=== PATIENT | male | born 1965 | race Caucasian/White ===

== ENCOUNTER 2019-10-15 09:52 | Inpatient (IN) | payer BC ==
[2019-10-15] MEDS ORDERED: Adenosine 6 MG/2 ML VIAL ONE (09:56)
[2019-10-15] MEDS ORDERED: Aspirin 325 MG TAB ONE (09:58)
[2019-10-15] MEDS ORDERED: Enoxaparin Sodium 30 MG/0.3 ML SYRINGE ONE (10:03)
[2019-10-15] MEDS ORDERED: Enoxaparin Sodium 100 MG/ML SYRINGE ONE (10:03)
[2019-10-15 10:12] LABS: Hemoglobin 15.9 g/dL (14.0-18.0); Mean Corpuscular HGB CONC 34.9 g/dL (32.0-36.0); Mean Corpuscular Hemoglobin 32.8 pg (27.0-31.0); Mean Corpuscular Volume 93.9 fL (78.0-98.0); Mean Platelet Volume 7.9 fL (7.4-10.4); Platelet Count 343 thou/uL (130-400); RBC Distribution Width 11.5 % (11.5-14.5); Red Blood Cell (RBC) Count 4.85 mill/uL (4.70-6.10); White Blood Cell (WBC) Count 15.1 thou/uL (4.8-10.8)
[2019-10-15] MEDS ORDERED: Diltiazem 125 MG/25 ML ONE (10:12)
[2019-10-15 10:17] LABS: INR-International Normal Ratio 0.9; PTT 25.4 SEC (22.9-36.1); Prothrombin Time 12.2 SEC (12.0-14.7)
[2019-10-15 10:30] LABS: ALT (SGPT) 19 U/L (8-55); AST (SGOT) 24 U/L (5-34); Albumin 4.5 g/dL (3.5-5.0); Alkaline Phosphatase 64 U/L (40-110); Anion Gap 17 mmol/L (10-20); BUN (Urea Nitrogen) 12 mg/dL (8.4-25.7); Bilirubin, Total 0.4 mg/dL (0.2-1.2); CK (CPK) 410 U/L (30-200); Calc. Creatinine Clearance 0 mL/min (70-130); Calcium 9.7 mg/dL (7.8-10.44); Carbon Dioxide 21 mmol/L (22-29); Chloride 106 mmol/L (98-107); Estimated GFR-MDRD 88; Globulin 3.2 g/dL (2.4-3.5); Protein, Total 7.7 g/dL (6.0-8.3); Sodium 141 mmol/L (136-145)
[2019-10-15] MEDS ORDERED: Diltiazem HCl 125 MG, Admixture Fee 1 EACH in Sodium Chloride 0.9% 100 ML IVPB SCH (10:30)
[2019-10-15 10:33] LABS: Glucose 58 mg/dL (70-105); Potassium 2.8 mmol/L (3.5-5.1)
--- NOTE | 2019-10-15 10:33 | RAD ---
EXAM: Single view of the chest HISTORY: Tachycardia COMPARISON: None FINDINGS: Single view of the chest shows a normal sized cardiomediastinal silhouette. There is no jose dence of consolidation, mass, or pleural effusion. The bones are unremarkable. IMPRESSION: No evidence of acute cardiopulmonary disease
[2019-10-15] MEDS ORDERED: Potassium Chloride 20 MEQ TAB ONE ×2 (10:34→14:50)
[2019-10-15] MEDS ORDERED: Dextrose 50% Abboject 50 ML SYRINGE ONE (10:34)
[2019-10-15 10:37] LABS: Eosinophils 2 % (0-10); Large Platelets SLIGHT; Lymphocytes 35 % (21-51); MDiff Complete? YES; Monocytes 12 % (0-10); Neutrophil 44 % (42-75); Ovalocytes SLIGHT = 2-5 cells (100X) (0-1/hpf); Platelet Morphology Comment Appears Decreased; Reactive Lymphocytes 6 % (0-10)
[2019-10-15] MEDS ORDERED: Dextrose 10% in Water 250 ML IVPB SCH (10:45)
[2019-10-15 13:25] LABS: Troponin I 0.052 ng/mL (< 0.028)
[2019-10-15] MEDS ORDERED: Ondansetron ODT 4 MG TAB PO PRN (13:25)
[2019-10-15] MEDS ORDERED: Ondansetron PF 4 MG/2 ML Vial IVP PRN (13:25)
[2019-10-15] MEDS ORDERED: Dextrose 5% in Water 1,000 ML IV PRN (13:25)
[2019-10-15] MEDS ORDERED: HYDROcodone/Acetaminophen 5/325 mg Tablet PO PRN (13:25)
[2019-10-15] MEDS ORDERED: Dextrose 50% Abboject 50 ML SYRINGE SLOW IVP PRN (13:25)
[2019-10-15] MEDS ORDERED: Enoxaparin Sodium 40 MG/0.4 ML SYRINGE SC SCH (13:30)
[2019-10-15] MEDS ORDERED: Magnesium Sulfate 4 GM in Sodium Chloride 0.9% 250 ML 250 ML IVPB SCH (14:00)
--- NOTE | 2019-10-15 14:51 | HP ---
PRIMARY CARE PROVIDER: Out of town physician. CHIEF COMPLAINT: Acute onset of malaise and palpitations. HISTORY OF PRESENT ILLNESS: A 54-year-old male with past medical history significant for obesity, diabetes mellitus on insulin, who presents with sudden onset of ill feeling malaise associated with diaphoresis and palpitation. The patient reportedly woke up well and was getting ready for discharge, but suddenly developed sudden onset of ill feeling associated with diaphoresis and some orthostatic dizziness. He also felt some palpitations, but did not fall. Maybe he was having hypoglycemia for he took his usual Lantus dose about an hour earlier on. He took a bite of some food and decided to lay down. However, due to some chest discomfort and some palpitation as well as diaphoresis, dry mouth, and ill feeling, the checked his blood pressure and it was noted to be above 200, hence they decided to come to the hospital. On arrival to the ER, initial vitals showed blood pressure of 221/94, pulse of 120, respiratory rate of 16, temperature of 98.4 as well as SpO2 of 98 on room air. Initial EKG showed sinus tachycardia with no obvious discernible P wave concerning for possible atrial fibrillation. ED doctor then decided to slow down the heart to see if we could descend the reading better, so he gave adenosine, but there was no significant change in rate or rhythm. He subsequently started the patient on Cardizem infusion with decrease in heart rate at which point he was able to discern some P waves consistent with sinus tachycardia. Cardizem improved the heart rate as well as blood pressure, but subsequently the heart rate dropped to about 90s and blood pressure down to 150s, hence they discontinued the Cardizem infusion. Further evaluation with CMP showed serum potassium of 2.8 and glucose of 58. At this point, hypoglycemia was considered. Of note, the patient took some bites of some food at home prior to leaving home and also drank some Mountain Dew diet en route to the hospital. He was treated subsequently for hypoglycemia with dextrose containing infusion as well as 40 mEq of potassium chloride for hypokalemia. Soon, diaphoresis, palpitation, and restlessness subsided and the patient is calm. Since discontinuation of Cardizem infusion, heart rate has remained below 100 and the patient is comfortable. Note that there was no history of chest pain or radiation. The patient admitted to feeling of unwell in his chest. Of note, the patient took 80 units of Lantus about an hour before onset of symptoms. By the time he took the Lantus, he has not had anything to eat as well. PAST MEDICAL HISTORY: 1. Diabetes mellitus, on insulin. 2. Hypertension. 3. Hypothyroidism. 4. Morbid obesity. 5. Dyslipidemia. PAST SURGICAL HISTORY: 1. Hernia repair. 2. Bilateral knee surgery. FAMILY HISTORY: Significant for coronary artery disease, diabetes, hypertension, as well as CVA in both parents. A brother from metastatic melanoma. SOCIAL HISTORY: The patient lives with family here in town, but walks in [place]. He denied alcohol, drug use, or smoking. He wants to be full code and spouse is the surrogate decision maker. ALLERGIES: ERYTHROMYCIN. CURRENT HOME MEDICATIONS: 1. Lantus 80 units morning and night. 2. Metformin 1000 mg b.i.d. 3. Levothyroxine 150 mcg p.o. daily. 4. Lisinopril 5 mg p.o. daily. 5. Aspirin 81 mg p.o. daily. REVIEW OF SYSTEMS: Twelve-point review of system performed was negative other than pertinent positives and negatives included in the history of present illness. PHYSICAL EXAMINATION: VITAL SIGNS: Most recent vitals showed BP of 168/61, pulse of 99, respiratory rate of 15, and SpO2 of 94% on room air. GENERAL: Morbidly obese male, in no obvious distress. Afebrile. Anicteric. Acyanotic. HEENT: Normocephalic, atraumatic. Oral mucosa is moist. NECK: Supple with no JVD. No masses or lymphadenopathy appreciated. CARDIOVASCULAR: Regular rhythm and rate with normal heart sounds one and two. RESPIRATORY: Fair air entry bilaterally with no obvious crackle or rhonchi or use of accessory muscles. GI: Obese, soft, nontender, nondistended with normal bowel sounds. EXTREMITIES: Grossly normal looking atraumatic with no edema or erythema. Distal pulses are palpable. BRONZE CHASER: Conscious, alert, oriented x3 with appropriate mental status. Cranial nerves 2 through 12 are grossly intact. DIAGNOSTIC DATA: CBC showed WBC count of 15, hemoglobin of 15.9, MCV of 93.9, platelet of 343. Coagulation panel showed PT 12.2, INR 0.9, PTT 25.4. CMP showed sodium 141, potassium 2.8, chloride 106, CO2 of 21, BUN 12, creatinine 0.90, anion gap 17, glucose 58, calcium 9.7, total bilirubin 0.4, AST 24, ALT 19, alkaline phosphatase 64, total protein 7.7, albumin 4.5, globulin 3.2. Initial cardiac markers showed CK 410, troponin less than 0.010 and BNP 14.3. EKG: Initial EKG showed sinus tachycardia with most likely sinus rhythm. Rate was 120. Subsequent EKG obtained after commencement of Cardizem infusion showed sinus tachycardia. No obvious ST elevation was discernible. Chest x-ray showed no evidence of acute cardiopulmonary disease. ASSESSMENT: 1. Acute cardiopulmonary distress: Etiology is unclear. Differentials include hypoglycemic and/or symptomatic tachyarrhythmia and/or acute coronary syndrome. 2. Presumed hypoglycemic episode. The patient admitted to malaise and diaphoresis and blood sugar was 58 on presentation despite eating something at home and the patient took long-acting insulin prior. 3. Tachyarrhythmia: Etiology is unclear. 4. Possible acute coronary syndrome. 5. Morbid obesity. 6. Type 2 diabetes mellitus, on insulin. 7. Significant history for coronary artery disease in both parents. PLAN: 1. Hypokalemia: Hypomagnesemia. 2. History of generalized cramps. 3. We will get serial troponin to rule out acute myocardial infarction. 4. We will also get Cardiology consult. 5. We will replete serum potassium and magnesium with potassium chloride and magnesium sulfate respectively. 6. We will also start the patient on dextrose containing infusion given hypoglycemia which is felt to be due to long-acting insulin. Diabetic diet will be commenced and we will monitor blood sugar regularly and treat hypoglycemia should it occur. We will hold any further insulin therapy at this time. 7. We will admit the patient to telemetry for close monitoring. 8. Code status full code. Spouse is the surrogate decision maker. Further treatment to follow depending on hospital course. Job ID: [id number]
[2019-10-15] MEDS: Dextrose 5%-Lactated Ringers 1,000 ML IV SCH ×2 (16:02→18:57)
[2019-10-15 16:42] LABS: Bacteria/HPF None Seen HPF (None Seen); Bilirubin Negative (Negative); Blood, Urine Negative (Negative); Clarity Clear (Clear); Glucose, Urine (Dipstick) Normal (Negative); Leukocyte Negative Leu/uL (Negative); Nitrite Negative (Negative); Protein, Urine (Dipstick) Negative (Neg-Trace); RBC/HPF 0-3 HPF (0-3); Squamous Epithelial 0-3 HPF (0-3); Urobilinogen Normal mg/dL (Less than 2); WBC/HPF 0-3 HPF (0-3)
[2019-10-15 16:44] LABS: Urine Culture Reflex No No
[2019-10-15 16:52] LABS: Amphetamine Not Detected (NotDetected); Barbiturates Screen Not Detected (NotDetected); Benzodiazepine Screen Not Detected (NotDetected); Cocaine Metabolite Screen Not Detected (NotDetected); Medtox Control Line Valid? VALID (VALID); Medtox Reader # READER 4; Methadone Not Detected (NotDetected); Methamphetamine Not Detected (NotDetected); Opiate Screen Not Detected (NotDetected); Oxycodone Screen Not Detected (NotDetected); Phencyclidine (PCP) Not Detected (NotDetected); THC/Cannabinoid Screen Not Detected (NotDetected); Tricyclic Screen Not Detected (NotDetected)
[2019-10-15 17:21] LABS: Troponin I 0.237 ng/mL (< 0.028)
[2019-10-15] MEDS: Famotidine 20 MG TAB PO SCH (19:58)
[2019-10-15] MEDS ORDERED: Enoxaparin Sodium 80 MG/0.8 ML SYRINGE SC SCH (20:01)
[2019-10-15 20:22] LABS: Anion Gap 17 mmol/L (10-20); BUN (Urea Nitrogen) 9 mg/dL (8.4-25.7); Calc. Creatinine Clearance 191 mL/min (70-130); Calcium 9.1 mg/dL (7.8-10.44); Carbon Dioxide 19 mmol/L (22-29); Chloride 107 mmol/L (98-107); Estimated GFR-MDRD Greater than 90; Glucose 144 mg/dL (70-105); Potassium 4.2 mmol/L (3.5-5.1); Sodium 139 mmol/L (136-145)
[2019-10-16 05:06] LABS: Anion Gap 12 mmol/L (10-20); BUN (Urea Nitrogen) 8 mg/dL (8.4-25.7); Calc. Creatinine Clearance 159 mL/min (70-130); Calcium 8.7 mg/dL (7.8-10.44); Carbon Dioxide 24 mmol/L (22-29); Chloride 105 mmol/L (98-107); Estimated GFR-MDRD 78; Glucose 215 mg/dL (70-105); Potassium 3.9 mmol/L (3.5-5.1); Sodium 137 mmol/L (136-145)
[2019-10-16 05:21] LABS: Eosinophils 2 % (0-10); Hemoglobin 13.9 g/dL (14.0-18.0); Lymphocytes 49 % (21-51); MDiff Complete? YES; Mean Corpuscular HGB CONC 34.9 g/dL (32.0-36.0); Mean Corpuscular Hemoglobin 33.2 pg (27.0-31.0); Mean Corpuscular Volume 95.2 fL (78.0-98.0); Mean Platelet Volume 7.7 fL (7.4-10.4); Monocytes 7 % (0-10); Neutrophil 42 % (42-75); Platelet Count 279 thou/uL (130-400); Platelet Morphology Comment Appears Adequate; RBC Distribution Width 11.6 % (11.5-14.5); Red Blood Cell (RBC) Count 4.17 mill/uL (4.70-6.10); White Blood Cell (WBC) Count 10.9 thou/uL (4.8-10.8)
[2019-10-16] MEDS ORDERED: Enoxaparin Sodium 40 MG/0.4 ML SYRINGE SC SCH (09:00)
[2019-10-16] MEDS: Famotidine 20 MG TAB PO SCH ×2 (09:49→22:10)
[2019-10-16] MEDS: Aspirin 325 mg Enteric Coated Tablet PO SCH (09:49)
[2019-10-16] MEDS: Acetaminophen 325 MG TAB PO PRN (09:52)
[2019-10-16] MEDS: Enoxaparin Sodium 120 MG/0.8 ML SYRINGE SC SCH ×2 (10:52→22:09)
[2019-10-16] MEDS ORDERED: Metoprolol Tartrate 25 MG TAB PO SCH (15:45)
--- NOTE | 2019-10-16 16:43 | PDOC.HOSPP ---
- Subjective Encounter Date: 10/16/19 Encounter Time: 09:37 Subjective: 54 y/o male with obesity, DM, HTN and others admitted with acute onset of ill feeling/malaise associated with diaphoresis and palpitation. Found to have hypoglycemia, tachycardia, as well as severe hypokalemia, hypomagnesemia and elevated troponin hence started on antithrombotic therapy after correction of hypoglycemia and electrolyte derangements. Feeling Better. remained afebrile. No chest pain. - Objective Vital Signs & Weight: Vital Signs (12 hours) Temp Pulse Resp BP Pulse Ox 10/16/19 15:48 97.7 F 75 22 H 193/89 H 96 10/16/19 10:50 98.4 F 75 18 142/89 H 96 10/16/19 08:10 97.8 F 73 18 136/65 96 Weight Weight 293 lb Result Diagrams: 10/16/19 04:27 10/16/19 04:27 Additional Labs: Accuchecks 10/16/19 10/16/19 10/16/19 13:47 08:40 05:58 POC Glucose 256 H 179 H 186 H 10/16/19 10/15/19 00:09 20:38 POC Glucose 189 H 208 H Hospitalist ROS - Medication Medications: Active Medications Generic Name Dose Route Start Last Admin Trade Name Freq PRN Reason Stop Dose Admin Acetaminophen 650 mg 10/15/19 13:25 10/16/19 09:52 Tylenol PO 650 mg Q4H PRN Administration Headache/Fever/Mild Pain (1-3) Aspirin 325 mg 10/16/19 09:00 10/16/19 09:49 Ecotrin PO 325 mg DAILY ABDOULAYE Administration Enoxaparin Sodium 120 mg 10/16/19 09:00 10/16/19 10:52 Lovenox SC 120 mg 0900,2100 ABDOULAYE Administration Famotidine 20 mg 10/15/19 21:00 10/16/19 09:49 Pepcid PO 20 mg BID ABDOULAYE Administration Metoprolol Tartrate 25 mg 10/16/19 15:45 10/16/19 16:14 Lopressor PO 10/16/19 17:45 25 mg NOW ABDOULAYE Administration - Exam General Appearance: awake alert General - other findings: obese Eye: anicteric sclera ENT: normocephalic atraumatic, moist mucosa Neck: supple, symmetric, no JVD Heart: RRR Respiratory: no wheezes, no rales, no ronchi, normal chest expansion, no tachypnea Gastrointestinal: soft, non-tender, non-distended, normal bowel sounds Extremities: no cyanosis, no edema Neurological: cranial nerve grossly intact, no focal deficits Psychiatric: normal affect, A&O x 3 Hosp A/P (1) ACS (acute coronary syndrome) Code(s): I24.9 - ACUTE ISCHEMIC HEART DISEASE, UNSPECIFIED Status: Acute (2) Paroxysmal tachycardia Code(s): I47.9 - PAROXYSMAL TACHYCARDIA, UNSPECIFIED Status: Acute (3) Hypoglycemia due to insulin Code(s): E16.0 - DRUG-INDUCED HYPOGLYCEMIA WITHOUT COMA; T38.3X5A - ADVERSE EFFECT OF INSULIN AND ORAL HYPOGLYCEMIC DRUGS, INIT Status: Acute (4) Obesity (BMI 35.0-39.9 without comorbidity) Code(s): E66.9 - OBESITY, UNSPECIFIED Status: Acute (5) Diabetes mellitus Code(s): E11.9 - TYPE 2 DIABETES MELLITUS WITHOUT COMPLICATIONS Status: Acute (6) Dyslipidemia Code(s): E78.5 - HYPERLIPIDEMIA, UNSPECIFIED Status: Acute (7) Hypomagnesemia Code(s): E83.42 - HYPOMAGNESEMIA Status: Acute (8) Hypokalemia Code(s): E87.6 - HYPOKALEMIA Status: Acute - Plan DC dextrose containg infusion Monitor blood glucose Continue antithrombotic therapy Continue to hold insulin Monitor electrolytes and replete as needed Awaiting cardiology input
--- NOTE | 2019-10-16 16:57 | CON ---
DATE OF CONSULTATION: 10/16/2019 REASON FOR CONSULTATION: Acute coronary syndrome and non-ST elevation myocardial infarction. HISTORY OF PRESENT ILLNESS: Mr. James Pena is a very pleasant 54-year-old gentleman. He said he has had diabetes for "about 20 years." Yesterday the onset of just not feeling right, some palpitations, diaphoresis, and a vague discomfort in his chest, but mostly he does felt like something did not feel right to him. He had a really very little way in a chest discomfort, more of a sensation of palpitations. The patient became diaphoretic. He also felt extremely lightheaded like he might faint. His is a nurse and she encouraged him to go to the emergency room, which he eventually did. He was extremely hypertensive, blood pressure 220/94 and pulse 120. The patient was given diltiazem. Also found to be very low on potassium and magnesium, those were both repleted. The patient felt better after got these medicines. The patient is feeling fine today. The patient did have ST depression associated with this sensation that was documented in the emergency room. PAST MEDICAL HISTORY: 1. Diabetes. He says about 20 years, he is on insulin. 2. Hypertension. 3. Morbid obesity. 4. Hypothyroidism. 5. Dyslipidemia. PAST SURGICAL HISTORY: 1. Hernia repair. 2. Bilateral knee surgery. FAMILY HISTORY: Positive for coronary artery disease. SOCIAL HISTORY: Lives with his family here in town. Works in [employer]. ALLERGIES: TO ERYTHROMYCIN. MEDICATIONS: Prior to admission; 1. Lantus insulin. 2. Metformin. 3. Levothyroxine. 4. Lisinopril. 5. Aspirin. REVIEW OF SYSTEMS: CONSTITUTIONAL: No significant weight gain or loss. VISION: No changes. HEARING: No changes. PULMONARY: No cough or wheezing. GASTROINTESTINAL: No nausea, vomiting, or diarrhea. SKIN: No rashes. NEUROLOGIC: No unilateral weakness or numbness. PSYCHIATRIC: No unusual depression or anxiety. HEMATOLOGIC: No unusual bruising. GENITOURINARY: No burning with urination. PHYSICAL EXAMINATION: VITAL SIGNS: Blood pressure 142/89 and pulse 74 and regular. LUNGS: Clear. CARDIAC: Normal S1. Normal S2. ABDOMEN: Soft and nontender. EXTREMITIES: Warm and dry. No clubbing. No cyanosis or edema. Peripheral pulses are deep, but I do feel pedal pulses. PERTINENT LABORATORY DATA: The potassium was 2.8 initially. Magnesium was 1.4 initially. The pertinent laboratory, the patient did have ST depression in leads I, II, V4, V5, and V6 on the emergency room EKGs. The heart rate at that time was about 115 beats per minute. Cardiac enzymes, troponin level peak 0.237 yesterday afternoon. Echocardiogram was done showing the ejection fraction is normal 55% to 60%. For some reason, it has not been transferred into [facility], but it is in the echo system. ASSESSMENT: 1. Non-ST elevation myocardial infarction. 2. Longstanding diabetes. 3. Obesity, BMI is 39.7. 4. Hypokalemia. 5. Hypomagnesemia. 6. Unknown cholesterol status. PLAN: 1. Aspirin. 2. We will add beta blockers, especially in view of the tachycardia associated with the symptoms. 3. Check lipid profile and statins have been started. Target LDL needs to be below 70. 4. Recommend cardiac catheterization. Discussed the procedure with this gentleman. The patient initially states he was not going to stay in the hospital to get this done, but he is reconsidering that. Discussed the procedure with this gentleman. There is really no indication for stress testing as he has positive cardiac enzymes and ST depression with the symptoms, very high risk profile patient. The patient understands. We will check back with him later as he has not yet decided if he wishes to stay in the hospital to get this done. The patient states he will not stay, if he continues to have the Hep-Lock in the left antecubital fossa. I think we can take that out. I think it is more important that he stay here on the monitor. We observe him, in case he has recurrent chest pain. The patient does not want this IV left in the left antecubital fossa, wants to have it out now. We will check back the patient later back to know his decision. Job ID: [id number]
[2019-10-16] MEDS ORDERED: Potassium Chloride 20 MEQ TAB PO SCH (18:00)
[2019-10-16] MEDS: Atorvastatin Calcium 40 MG TAB PO SCH (22:09)
[2019-10-16] MEDS ORDERED: Communication Order-Pharmacy FS SCH ×2 (22:45)
[2019-10-17] MEDS: Acetaminophen 325 MG TAB PO PRN ×2 (00:17→05:49)
[2019-10-17 05:18] LABS: Anion Gap 12 mmol/L (10-20); BUN (Urea Nitrogen) 10 mg/dL (8.4-25.7); Calc. Creatinine Clearance 136 mL/min (70-130); Calcium 9.2 mg/dL (7.8-10.44); Carbon Dioxide 25 mmol/L (22-29); Cardiac Risk 8.1 (Less than 4.5); Chloride 102 mmol/L (98-107); Cholesterol 210 mg/dl (< 200 Desired); Estimated GFR-MDRD 65; Glucose 274 mg/dL (70-105); HDL Cholesterol 26 mg/dL (>60 Neg Risk); Magnesium 1.9 mg/dL (1.6-2.6); Potassium 4.1 mmol/L (3.5-5.1); Sodium 135 mmol/L (136-145); Triglycerides 527 mg/dL (Less than 150)
[2019-10-17 05:21] LABS: Troponin I 0.095 ng/mL (< 0.028)
[2019-10-17] MEDS: Levothyroxine 150 MCG TAB PO SCH (05:47)
[2019-10-17] MEDS: Famotidine 20 MG TAB PO SCH ×2 (08:13→20:50)
[2019-10-17] MEDS: Enoxaparin Sodium 100 MG/ML SYRINGE SC SCH ×2 (08:14→20:49)
[2019-10-17] MEDS: Aspirin 325 mg Enteric Coated Tablet PO SCH (08:14)
[2019-10-17] MEDS: Magnesium Oxide 400 MG TAB PO SCH (08:14)
[2019-10-17] MEDS: Potassium Chloride 20 MEQ TAB PO SCH (08:14)
[2019-10-17] MEDS: Insulin Glargine 24 UNITS in Pre-Filled Syringe 1 EACH SC SCH (08:15)
[2019-10-17] MEDS: HumaLOG 300 UNITS/3 ML VIAL SC PRN ×2 (08:19→18:23)
--- NOTE | 2019-10-17 13:16 | PDOC.HOSPP ---
- Subjective Encounter Date: 10/17/19 Encounter Time: 09:14 Subjective: 54 y/o male with obesity, DM, HTN and others admitted with acute onset of ill feeling/malaise associated with diaphoresis and palpitation. Found to have hypoglycemia, tachycardia, as well as severe hypokalemia, hypomagnesemia and elevated troponin hence started on antithrombotic therapy after correction of hypoglycemia and electrolyte derangements. Feeling Better. No chest pain. - Objective Vital Signs & Weight: Vital Signs (12 hours) Temp Pulse Resp BP BP Pulse Ox 10/17/19 10:55 98.0 F 75 15 153/72 H 97 10/17/19 07:12 98.3 F 73 21 H 160/79 H 96 10/17/19 04:00 98.3 F 66 23 H 147/72 H 96 Weight Weight 293 lb Result Diagrams: 10/16/19 04:27 10/17/19 04:44 Additional Labs: Accuchecks 10/17/19 10/16/19 10/16/19 06:03 21:08 16:52 POC Glucose 257 H 255 H 234 H 10/16/19 13:47 POC Glucose 256 H Hospitalist ROS - Medication Medications: Active Medications Generic Name Dose Route Start Last Admin Trade Name Freq PRN Reason Stop Dose Admin Acetaminophen 650 mg 10/15/19 13:25 10/17/19 05:49 Tylenol PO 650 mg Q4H PRN Administration Headache/Fever/Mild Pain (1-3) Aspirin 325 mg 10/16/19 09:00 10/17/19 08:14 Ecotrin PO 325 mg DAILY ABDOULAYE Administration Atorvastatin Calcium 40 mg 10/16/19 21:00 10/16/19 22:09 Lipitor PO Not Given HS [facility] Enoxaparin Sodium 100 mg 10/17/19 09:00 10/17/19 08:14 Lovenox SC 10/18/19 21:01 100 mg 0900,2100 ABDOULAYE Administration Famotidine 20 mg 10/15/19 21:00 10/17/19 08:13 Pepcid PO 20 mg BID ABDOULAYE Administration Insulin Glargine 24 units/ 0.24 mls @ 0 mls/hr 10/17/19 09:00 10/17/19 08:15 Miscellaneous Medication SC 0.24 mls QAM ABDOULAYE Administration Insulin Human Lispro 0 units 10/17/19 05:39 10/17/19 08:19 Humalog SC 6 units .MODERATE SLIDING SC PRN Administration Moderate Correctional Scale Levothyroxine Sodium 150 mcg 10/17/19 06:00 10/17/19 05:47 Synthroid PO 150 mcg 0600 ABDOULAYE Administration Magnesium Oxide 400 mg 10/17/19 09:00 10/17/19 08:14 Magnesium Oxide PO 400 mg DAILY ABDOULAYE Administration Metoprolol Succinate 50 mg 10/17/19 09:00 10/17/19 08:14 Toprol Xl PO 50 mg DAILY ABDOULAYE Administration Potassium Chloride 20 meq 10/17/19 08:00 10/17/19 08:14 K-Dur PO 20 meq QAM-WM ABDOULAYE Administration - Exam General Appearance: awake alert Eye: anicteric sclera ENT: normocephalic atraumatic Neck: symmetric, no JVD Heart: RRR Respiratory: no wheezes, no rales, no ronchi, normal chest expansion Gastrointestinal: soft, non-tender, non-distended, normal bowel sounds Gastrointestinal - other findings: obese Extremities: no cyanosis, no edema Neurological: cranial nerve grossly intact, no focal deficits Psychiatric: A&O x 3 Hosp A/P (1) Acute non-ST elevation myocardial infarction (NSTEMI) Code(s): I21.4 - NON-ST ELEVATION (NSTEMI) MYOCARDIAL INFARCTION Status: Acute (2) Paroxysmal tachycardia Code(s): I47.9 - PAROXYSMAL TACHYCARDIA, UNSPECIFIED Status: Acute (3) Hypoglycemia due to insulin Code(s): E16.0 - DRUG-INDUCED HYPOGLYCEMIA WITHOUT COMA; T38.3X5A - ADVERSE EFFECT OF INSULIN AND ORAL HYPOGLYCEMIC DRUGS, INIT Status: Acute (4) Obesity (BMI 35.0-39.9 without comorbidity) Code(s): E66.9 - OBESITY, UNSPECIFIED Status: Acute (5) Diabetes mellitus Code(s): E11.9 - TYPE 2 DIABETES MELLITUS WITHOUT COMPLICATIONS Status: Acute (6) Dyslipidemia Code(s): E78.5 - HYPERLIPIDEMIA, UNSPECIFIED Status: Acute (7) Hypomagnesemia Code(s): E83.42 - HYPOMAGNESEMIA Status: Acute (8) Hypokalemia Code(s): E87.6 - HYPOKALEMIA Status: Acute - Plan Continue antithrombotic therapy Cardiac catheterization scheduled in 2 days Restart lantus at a lower dose. Also start sliding scale insulin. Continue to hold metformin in view of planned cardiac catheterization Monitor electrolytes and replete as needed
--- NOTE | 2019-10-17 16:44 | PDOC.CPN ---
- Subjective Date: 10/17/19 Time: 16:48 Interval history: The pt seen and examined. No overnight events. No cardiac complaints. - Objective Allergies/Adverse Reactions: Allergies Allergy/AdvReac Type Severity Reaction Status Date / Time azithromycin Allergy Verified 10/15/19 17:41 Visit Medications: Current Medications Acetaminophen (Tylenol) 650 mg PO Q4H PRN PRN Reason: Headache/Fever/Mild Pain (1-3) Last Admin: 10/17/19 05:49 Dose: 650 mg Hydrocodone Bitart/Acetaminophen ([place] 5/325) 1 tab PO Q4H PRN PRN Reason: Moderate Pain (4-6) Aspirin (Ecotrin) 325 mg PO DAILY [facility] Last Admin: 10/17/19 08:14 Dose: 325 mg Atorvastatin Calcium (Lipitor) 40 mg PO HS [facility] Last Admin: 10/16/19 22:09 Dose: Not Given Dextrose/Water (Dextrose 50%) 25 gm SLOW IVP PRN PRN PRN Reason: Hypoglycemia Diazepam (Valium) 5 mg PO WILLCALL [facility] Stop: 10/19/19 06:01 Enoxaparin Sodium (Lovenox) 100 mg SC 0900,2100 [facility] Stop: 10/18/19 21:01 Last Admin: 10/17/19 08:14 Dose: 100 mg Famotidine (Pepcid) 20 mg PO BID [facility] Last Admin: 10/17/19 08:13 Dose: 20 mg Glucagon (Glucagon) 1 mg IM PRN PRN PRN Reason: Hypoglycemia Dextrose/Water (D5w) 1,000 mls @ 0 mls/hr IV .Q0M PRN PRN Reason: Hypoglycemia Sodium Chloride (Normal Saline 0.9%) 1,000 mls @ 100 mls/hr IV .Q10H [facility] Insulin Glargine 24 units/ (Miscellaneous Medication) 0.24 mls @ 0 mls/hr SC QAM [facility] Last Admin: 10/17/19 08:15 Dose: 0.24 mls Insulin Human Lispro (Humalog) 0 units SC .MODERATE SLIDING SC PRN PRN Reason: Moderate Correctional Scale Last Admin: 10/17/19 08:19 Dose: 6 units Levothyroxine Sodium (Synthroid) 150 mcg PO 0600 [facility] Last Admin: 10/17/19 05:47 Dose: 150 mcg Magnesium Oxide (Magnesium Oxide) 400 mg PO DAILY [facility] Last Admin: 10/17/19 08:14 Dose: 400 mg Metoprolol Succinate (Toprol Xl) 50 mg PO DAILY [facility] Last Admin: 10/17/19 08:14 Dose: 50 mg Miscellaneous Information (Communication Order-Pharmacy) 0 each FS ONE [facility] Stop: 10/19/19 08:59 Miscellaneous Information (Communication Order-Pharmacy) 0 each FS ONE [facility] Stop: 10/19/19 19:00 Ondansetron HCl (Zofran Odt) 4 mg PO Q6H PRN PRN Reason: Nausea/Vomiting Ondansetron HCl (Zofran) 4 mg IVP Q6H PRN PRN Reason: Nausea/Vomiting Potassium Chloride (K-Dur) 20 meq PO QAM-WM [facility] Last Admin: 10/17/19 08:14 Dose: 20 meq Sodium Chloride (Flush - Normal Saline) 10 ml IVF PRN PRN PRN Reason: Saline Flush Vital Signs & Weight: Vital Signs Temp Pulse Resp BP BP Pulse Ox 10/17/19 15:28 97.7 F 70 21 H 164/76 H 95 10/17/19 10:55 98.0 F 75 15 153/72 H 97 10/17/19 07:12 98.3 F 73 21 H 160/79 H 96 Weight 293 lb - Physical Exam General: alert & oriented x3 HEENT: mucus membranes moist Neck: supple neck Cardiac: regular rate and rhythm, S1/S2 Lungs: clear to auscultation Neuro: cranial nerve 2-12 intact - Labs Result Diagrams: 10/16/19 04:27 10/17/19 04:44 Troponin/CKMB Troponin I 0.095 ng/mL (< 0.028) H 10/17/19 04:44 - Telemetry Sinus rhythms and dysrhythmias: sinus rhythm - Assessment/Plan Assessment/Plan: 1. NSTEMI - plan for Cardiac cath on by Dr Goyal; the pt is asymptomatic; On BBlocker, ASA, Lovenox, and Statin; cont. to monitor on tele 2. HTN - will resume Lisinopril from tonight 3. HLD - on Statin 4. DM type 2 5. Hypokalemia - resolved 6. Hypomagnesemia - resolved MAR reviewed Pt. seen and eval. by me. I agree with the A/P by the BIAS MACHINE OPERATOR HELPER. long discussion with the pt. and about the indication for cardiac cath in a diabetic pt, with his presentation. I explained the procedure and risks. Plan for cardiac cath on . EF: 55-60%,normal valves without regurgitation or stenosis.
[2019-10-17] MEDS: Atorvastatin Calcium 40 MG TAB PO SCH (20:49)
[2019-10-17] MEDS ORDERED: Lisinopril 5 MG TAB PO SCH (21:00)
[2019-10-18] MEDS: Levothyroxine 150 MCG TAB PO SCH (05:34)
[2019-10-18] MEDS ORDERED: Artificial Tears 18 DROP/0.9 ML EA EYE PRN (08:24)
[2019-10-18] MEDS ORDERED: Sodium Chloride 0.65% Nasal 44 ML BOT EA NARE PRN (08:24)
[2019-10-18] MEDS ORDERED: hydrALAZINE 20 MG/ML VIAL SLOW IVP PRN (08:24)
[2019-10-18] MEDS ORDERED: Senokot S 8.6-50 MG TAB PO PRN (08:24)
[2019-10-18] MEDS ORDERED: Calcium Carbonate 500 MG ChewTAB PO PRN (08:24)
[2019-10-18] MEDS ORDERED: Nitroglycerin 0.4 MG TAB (25 Tab Bottle) SL PRN (08:24)
[2019-10-18] MEDS ORDERED: Bisacodyl 10 MG SUPP PR PRN (08:24)
[2019-10-18] MEDS ORDERED: Loperamide HCl 2 MG CAP PO PRN (08:24)
[2019-10-18] MEDS ORDERED: Zolpidem Tartrate 5 MG TAB PO PRN (08:24)
[2019-10-18] MEDS ORDERED: Diabetic Tussin 200 MG/10 ML UDCUP PO PRN (08:24)
[2019-10-18] MEDS ORDERED: Cepastat Lozenges 1 LOZ PO PRN (08:24)
[2019-10-18] MEDS: Insulin Glargine 24 UNITS in Pre-Filled Syringe 1 EACH SC SCH (08:32)
[2019-10-18] MEDS: HumaLOG 300 UNITS/3 ML VIAL SC PRN ×3 (08:33→17:55)
[2019-10-18] MEDS: Potassium Chloride 20 MEQ TAB PO SCH (08:37)
[2019-10-18] MEDS: Famotidine 20 MG TAB PO SCH ×2 (08:37→20:57)
[2019-10-18] MEDS: Magnesium Oxide 400 MG TAB PO SCH (08:37)
[2019-10-18] MEDS: Aspirin 325 mg Enteric Coated Tablet PO SCH (08:38)
[2019-10-18] MEDS: Enoxaparin Sodium 100 MG/ML SYRINGE SC SCH ×2 (08:38→20:57)
--- NOTE | 2019-10-18 11:40 | PDOC.HOSPP ---
- Subjective Encounter Date: 10/18/19 Encounter Time: 08:00 Subjective: Patient seen and examined. No new complaints. No overnight events - Objective Vital Signs & Weight: Vital Signs (12 hours) Temp Pulse Resp BP BP Pulse Ox 10/18/19 07:26 98.3 F 83 20 149/71 H 97 10/18/19 03:36 97.9 F 64 18 161/70 H 97 Weight Weight 291 lb I&O: 10/17/19 10/18/19 10/19/19 06:59 06:59 06:59 Intake Total 2120 Output Total 5 Balance 2114 Result Diagrams: 10/16/19 04:27 10/17/19 04:44 Additional Labs: Accuchecks 10/18/19 10/18/19 10/18/19 10:49 07:38 05:33 POC Glucose 253 H 294 H 295 H 10/17/19 10/17/19 20:57 16:54 POC Glucose 268 H 261 H Radiology Reviewed by me: Yes EKG Reviewed by me: Yes Hospitalist ROS - Review of Systems ENT: denies: ear pain, ear discharge, nose pain, nose discharge, nose congestion , mouth pain, mouth swelling, throat pain, throat swelling, other Respiratory: denies: cough, dry, shortness of breath, hemoptysis, SOB with excertion, pleuritic pain, sputum, wheezing, other Cardiovascular: denies: chest pain, palpitations, orthopnea, paroxysmal noc. dyspnea, edema, light headedness, other Gastrointestinal: denies: nausea, vomiting, abdominal pain, diarrhea, constipation, melena, hematochezia, other Genitourinary: denies: dysuria, frequency, incontinence, hematuria, retention, other Musculoskeletal: denies: neck pain, shoulder pain, arm pain, back pain, hand pain, leg pain, foot pain, other Skin: denies: rash, lesions, jessica, bruising, other - Medication Medications: Active Medications Generic Name Dose Route Start Last Admin Trade Name Freq PRN Reason Stop Dose Admin Acetaminophen 650 mg 10/15/19 13:25 10/17/19 05:49 Tylenol PO 650 mg Q4H PRN Administration Headache/Fever/Mild Pain (1-3) Aspirin 325 mg 10/16/19 09:00 10/18/19 08:38 Ecotrin PO 325 mg DAILY ABDOULAYE Administration Atorvastatin Calcium 40 mg 10/16/19 21:00 10/17/19 20:49 Lipitor PO 40 mg HS ABDOULAYE Administration Enoxaparin Sodium 100 mg 10/17/19 09:00 10/18/19 08:38 Lovenox SC 10/18/19 21:01 100 mg 0900,2100 ABDOULAYE Administration Famotidine 20 mg 10/15/19 21:00 10/18/19 08:37 Pepcid PO 20 mg BID ABDOULAYE Administration Insulin Glargine 24 units/ 0.24 mls @ 0 mls/hr 10/17/19 09:00 10/18/19 08:32 Miscellaneous Medication SC 0.24 mls QAM ABDOULAYE Administration Insulin Human Lispro 0 units 10/17/19 05:39 10/18/19 08:33 Humalog SC 6 units .MODERATE SLIDING SC PRN Administration Moderate Correctional Scale Levothyroxine Sodium 150 mcg 10/17/19 06:00 10/18/19 05:34 Synthroid PO 150 mcg 0600 ABDOULAYE Administration Lisinopril 5 mg 10/17/19 21:00 10/17/19 20:50 Zestril PO 5 mg HS ABDOULAYE Administration Magnesium Oxide 400 mg 10/17/19 09:00 10/18/19 08:37 Magnesium Oxide PO 400 mg DAILY ABDOULAYE Administration Metoprolol Succinate 50 mg 10/17/19 09:00 10/18/19 08:38 Toprol Xl PO 50 mg DAILY ABDOULAYE Administration Potassium Chloride 20 meq 10/17/19 08:00 10/18/19 08:37 K-Dur PO 20 meq QAM-WM ABDOULAYE Administration - Exam General Appearance: NAD, awake alert Eye: PERRL, anicteric sclera ENT: normocephalic atraumatic, no oropharyngeal lesions Neck: supple, symmetric, no JVD, no thyromegaly Heart: RRR, no murmur, no gallops, no rubs Respiratory: CTAB, no wheezes, no rales, no ronchi Gastrointestinal: soft, non-tender, non-distended, normal bowel sounds Extremities: no cyanosis, no clubbing, no edema Skin: normal turgor, no lesions Neurological: no focal deficits Musculoskeletal: normal tone, normal strength Psychiatric: normal affect, normal behavior Hosp A/P (1) ACS (acute coronary syndrome) Code(s): I24.9 - ACUTE ISCHEMIC HEART DISEASE, UNSPECIFIED Status: Acute (2) Acute non-ST elevation myocardial infarction (NSTEMI) Code(s): I21.4 - NON-ST ELEVATION (NSTEMI) MYOCARDIAL INFARCTION Status: Acute (3) Diabetes mellitus Code(s): E11.9 - TYPE 2 DIABETES MELLITUS WITHOUT COMPLICATIONS Status: Acute Qualifiers: Diabetes mellitus type: type 2 Diabetes mellitus fdc insulin use: with fdc use (4) Dyslipidemia Code(s): E78.5 - HYPERLIPIDEMIA, UNSPECIFIED Status: Chronic (5) Hypoglycemia due to insulin Code(s): E16.0 - DRUG-INDUCED HYPOGLYCEMIA WITHOUT COMA; T38.3X5A - ADVERSE EFFECT OF INSULIN AND ORAL HYPOGLYCEMIC DRUGS, INIT Status: Resolved (6) Hypokalemia Code(s): E87.6 - HYPOKALEMIA Status: Resolved (7) Hypomagnesemia Code(s): E83.42 - HYPOMAGNESEMIA Status: Resolved (8) Obesity (BMI 35.0-39.9 without comorbidity) Code(s): E66.9 - OBESITY, UNSPECIFIED Status: Chronic (9) Paroxysmal tachycardia Code(s): I47.9 - PAROXYSMAL TACHYCARDIA, UNSPECIFIED Status: Resolved - Plan old records reviewed/req, plan discussed w/ family 10/18/19 repeat labs tomorrow, tomorrow plan for cardiac cath, medication reviewed and continue to provide symptomatic treatment
--- NOTE | 2019-10-18 15:41 | PDOC.CPN ---
- Subjective Date: 10/18/19 Time: 15:44 Interval history: The pt seen and examined. No overnight events. No cardiac complaints. - Objective Allergies/Adverse Reactions: Allergies Allergy/AdvReac Type Severity Reaction Status Date / Time azithromycin Allergy Verified 10/15/19 17:41 Visit Medications: Current Medications Acetaminophen (Tylenol) 650 mg PO Q4H PRN PRN Reason: Headache/Fever/Mild Pain (1-3) Last Admin: 10/17/19 05:49 Dose: 650 mg Hydrocodone Bitart/Acetaminophen ([place] 5/325) 1 tab PO Q4H PRN PRN Reason: Moderate Pain (4-6) Artificial Tears (Tears Naturale) 2 drop EA EYE PRN PRN PRN Reason: Dry Eyes Aspirin (Ecotrin) 325 mg PO DAILY [facility] Last Admin: 10/18/19 08:38 Dose: 325 mg Atorvastatin Calcium (Lipitor) 40 mg PO HS [facility] Last Admin: 10/17/19 20:49 Dose: 40 mg Bisacodyl (Dulcolax) 10 mg CO DAILYPRN PRN PRN Reason: Constipation Calcium Carbonate (Tums) 1,000 mg PO Q4H PRN PRN Reason: Heartburn or Indigestion Dextrose/Water (Dextrose 50%) 25 gm SLOW IVP PRN PRN PRN Reason: Hypoglycemia Diazepam (Valium) 5 mg PO WILLCALL [facility] Stop: 10/19/19 06:01 Enoxaparin Sodium (Lovenox) 100 mg SC 0900,2100 [facility] Stop: 10/18/19 21:01 Last Admin: 10/18/19 08:38 Dose: 100 mg Famotidine (Pepcid) 20 mg PO BID [facility] Last Admin: 10/18/19 08:37 Dose: 20 mg Glucagon (Glucagon) 1 mg IM PRN PRN PRN Reason: Hypoglycemia Guaifenesin (Robitussin Sf) 200 mg PO Q4H PRN PRN Reason: Cough Hydralazine HCl (Apresoline) 10 mg SLOW IVP Q4H PRN PRN Reason: SBP > 180 and HR < 70 Dextrose/Water (D5w) 1,000 mls @ 0 mls/hr IV .Q0M PRN PRN Reason: Hypoglycemia Sodium Chloride (Normal Saline 0.9%) 1,000 mls @ 100 mls/hr IV .Q10H [facility] Insulin Glargine 30 units/ (Miscellaneous Medication) 0.3 mls @ 0 mls/hr SC QAM [facility] Insulin Glargine 10 units/ (Miscellaneous Medication) 0.1 mls @ 0 mls/hr SC HS [facility] Insulin Human Lispro (Humalog) 0 units SC .MODERATE SLIDING SC PRN PRN Reason: Moderate Correctional Scale Last Admin: 10/18/19 11:51 Dose: 4 units Levothyroxine Sodium (Synthroid) 150 mcg PO 0600 [facility] Last Admin: 10/18/19 05:34 Dose: 150 mcg Lisinopril (Zestril) 5 mg PO HS [facility] Last Admin: 10/17/19 20:50 Dose: 5 mg Loperamide HCl (Imodium) 2 mg PO PRN PRN PRN Reason: Diarrhea/Loose Stools Loratadine (Claritin) 10 mg PO DAILYPRN PRN PRN Reason: Sinus Symptoms Magnesium Oxide (Magnesium Oxide) 400 mg PO DAILY [facility] Last Admin: 10/18/19 08:37 Dose: 400 mg Metoprolol Succinate (Toprol Xl) 50 mg PO DAILY [facility] Last Admin: 10/18/19 08:38 Dose: 50 mg Miscellaneous Information (Communication Order-Pharmacy) 0 each FS ONE [facility] Stop: 10/19/19 08:59 Miscellaneous Information (Communication Order-Pharmacy) 0 each FS ONE [facility] Stop: 10/19/19 19:00 Nitroglycerin (Nitrostat) 0.4 mg SL Q5MIN PRN PRN Reason: Chest Pain Ondansetron HCl (Zofran Odt) 4 mg PO Q6H PRN PRN Reason: Nausea/Vomiting Ondansetron HCl (Zofran) 4 mg IVP Q6H PRN PRN Reason: Nausea/Vomiting Potassium Chloride (K-Dur) 20 meq PO QAM-WM [facility] Last Admin: 10/18/19 08:37 Dose: 20 meq Senna/Docusate Sodium (Senokot S) 2 tab PO BIDPRN PRN PRN Reason: Constipation Sodium Chloride (Flush - Normal Saline) 10 ml IVF PRN PRN PRN Reason: Saline Flush Sodium Chloride ([place] Nasal [place] 0.65%) 0 ml EA NARE QIDPRN PRN PRN Reason: Nasal Congestion Throat Lozenges (Cepastat Lozenges) 1 jeanine PO Q2H PRN PRN Reason: Sore Throat Zolpidem Tartrate (Ambien) 5 mg PO HSPRN PRN PRN Reason: Insomnia Vital Signs & Weight: Vital Signs Temp Pulse Resp BP BP BP Pulse Ox 10/18/19 14:51 98.9 F 76 19 164/81 H 97 10/18/19 12:05 98.0 F 75 13 158/70 H 96 10/18/19 07:26 98.3 F 83 20 149/71 H 97 Weight 291 lb - Physical Exam General: alert & oriented x3 HEENT: mucus membranes moist Neck: supple neck Cardiac: regular rate and rhythm, S1/S2 Lungs: clear to auscultation Neuro: cranial nerve 2-12 intact Abdomen: unremarkable Extremities: no cyanosis, no edema - Labs Result Diagrams: 10/16/19 04:27 10/17/19 04:44 Troponin/CKMB Troponin I 0.095 ng/mL (< 0.028) H 10/17/19 04:44 - Telemetry Sinus rhythms and dysrhythmias: sinus rhythm - Assessment/Plan Assessment/Plan: 1. NSTEMI - asymptomatic; On BBlocker, ASA, Lovenox, and Statin; cont. to monitor on tele; plan for Cardiac cath on by Dr Munoz; 2. HTN - will increase Lisinopril from 5mg to 10mg at HS from tonight 3. HLD - on Statin 4. DM type 2 5. Hypokalemia - resolved 6. Hypomagnesemia - resolved 7. Obese MAR reviewed * Echo with EF 55-60%,normal valves without regurgitation or stenosis. Pt. seen and eval. by me. I agree with the A/P by the EMT I/99.Chest clear,RRR. No chest pain. Answered any questions about the cardiac cath for tomorrow. sunny
[2019-10-18] MEDS: Lisinopril 10 MG TAB PO SCH (20:56)
[2019-10-18] MEDS: Atorvastatin Calcium 40 MG TAB PO SCH (20:56)
[2019-10-18] MEDS ORDERED: Insulin Glargine 10 UNITS in Pre-Filled Syringe SC SCH (21:00)
[2019-10-19 04:54] LABS: #Basophils 0.2 thou/uL (0.0-0.2); #Eosinphils 0.3 thou/uL (0.0-0.7); #Lymphocytes 4.8 thou/uL (1.20-3.40); #Monocytes 1.1 thou/uL (0.11-0.59); #Neutrophils 7.5 thou/uL (1.40-6.50); %Basophils 1.1 % (0.0-1.0); %Eosinophils 2.1 % (0.0-10.0); %Lymphocytes 34.6 % (21.0-51.0); %Monocytes 7.8 % (0.0-10.0); %Neutrophils 54.4 % (42.0-75.0); Hemoglobin 15.3 g/dL (14.0-18.0); Mean Corpuscular HGB CONC 34.7 g/dL (32.0-36.0); Mean Corpuscular Hemoglobin 32.5 pg (27.0-31.0); Mean Corpuscular Volume 93.6 fL (78.0-98.0); Mean Platelet Volume 8.3 fL (7.4-10.4); Platelet Count 299 thou/uL (130-400); RBC Distribution Width 11.6 % (11.5-14.5); Red Blood Cell (RBC) Count 4.72 mill/uL (4.70-6.10); White Blood Cell (WBC) Count 13.8 thou/uL (4.8-10.8)
[2019-10-19 05:00] LABS: Hemoglobin A1c 9.3 % (4.0-6.0)
[2019-10-19 05:17] LABS: Anion Gap 13 mmol/L (10-20); BUN (Urea Nitrogen) 12 mg/dL (8.4-25.7); Calc. Creatinine Clearance 131 mL/min (70-130); Calcium 9.1 mg/dL (7.8-10.44); Carbon Dioxide 24 mmol/L (22-29); Chloride 102 mmol/L (98-107); Estimated GFR-MDRD 63; Glucose 270 mg/dL (70-105); Magnesium 1.9 mg/dL (1.6-2.6); Potassium 4.1 mmol/L (3.5-5.1); Sodium 135 mmol/L (136-145)
[2019-10-19] MEDS: Magnesium Oxide 400 MG TAB PO SCH (05:30)
[2019-10-19] MEDS: Famotidine 20 MG TAB PO SCH ×2 (05:30→20:58)
[2019-10-19] MEDS: Potassium Chloride 20 MEQ TAB PO SCH (05:30)
[2019-10-19] MEDS: Levothyroxine 150 MCG TAB PO SCH (05:31)
[2019-10-19] MEDS: Sodium Chloride 0.9% 1,000 ML IV SCH ×2 (05:31→17:51)
[2019-10-19] MEDS: Aspirin 325 mg Enteric Coated Tablet PO SCH (05:31)
[2019-10-19] MEDS ORDERED: Diazepam 5 MG TAB PO SCH (06:00)
[2019-10-19] MEDS ORDERED: Heparin (Artline) 1,000 ML ONE (06:45)
[2019-10-19] MEDS ORDERED: Verapamil 5 MG/2 ML VIAL ONE (07:11)
[2019-10-19] MEDS ORDERED: Heparin 10,000 UNITS/1 ML VIAL ONE (07:11)
[2019-10-19] MEDS ORDERED: Nitroglycerin 100MG/250ML BOT 250 ML ONE (07:11)
[2019-10-19] MEDS ORDERED: Midazolam HCl 2 mg/2 ml Vial ONE (07:24)
[2019-10-19] MEDS ORDERED: Acetaminophen/Codeine 30-300mg Tablet PO PRN ×2 (08:43)
[2019-10-19] MEDS: Acetaminophen 325 MG TAB PO PRN (08:43)
[2019-10-19] MEDS ORDERED: Sodium Chloride 0.9% 200 ML IV PRN (08:43)
[2019-10-19] MEDS ORDERED: Nitroglycerin 0.4 MG TAB (25 Tab Bottle) SL PRN (08:43)
[2019-10-19] MEDS ORDERED: Insulin Glargine 30 UNITS in Pre-Filled Syringe SC SCH (09:00)
--- NOTE | 2019-10-19 09:24 | CON ---
DATE OF CONSULTATION: 10/19/2019 HISTORY OF PRESENT ILLNESS: Mr. Pena is a morbidly obese gentleman, who was admitted to the emergency department with non-ST elevation myocardial infarction. He was cooled off and eventually underwent cardiac catheterization today by Dr. Munoz. 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 The remainder of his coronary arteries are normal. On echocardiogram and ventriculogram, he has a normal ejection fraction with no significant valvular disease. I have been asked by Dr. Munoz to come see him in regard to potential bypass surgery. PAST MEDICAL HISTORY: All of the remainder of this information has been gleaned from the chart. 1. Diabetes mellitus. 2. Morbid obesity. 3. Hypertension. 4. Hypothyroidism. 5. Dyslipidemia. 6. Coronary artery disease. PAST SURGICAL HISTORY: 1. Hernia repair. 2. Bilateral knee surgery. ALLERGIES: ERYTHROMYCIN. CURRENT MEDICATIONS: Noted - he does take insulin at home. REVIEW OF SYSTEMS: Not performed. PHYSICAL EXAMINATION: Not performed. ASSESSMENT AND PLAN: On my arrival in the room, Mr. Pena after introducing myself, said he was not talking to me. I asked him what his aversion to speaking me was and he said that he has already told everyone that he is not having surgery and he refuses to even speak to me or undergo any further evaluation. He does have surgical disease as this is not amenable to percutaneous treatment. We had a time on the operative schedule today to care for him, but he is refusing any further evaluation. Job ID: [id number]
[2019-10-19] MEDS ORDERED: Iopamidol 370 76% 100 ML VIAL ONE (10:35)
--- NOTE | 2019-10-19 12:32 | PDOC.HOSPP ---
- Subjective Encounter Date: 10/19/19 Encounter Time: 09:15 Subjective: Patient seen and examined. No new complaints. No overnight events - Objective Vital Signs & Weight: Vital Signs (12 hours) Temp Pulse Resp BP Pulse Ox 10/19/19 08:00 96.6 F L 69 18 141/71 H 94 L 10/19/19 07:27 95 10/19/19 04:49 97.9 F 68 18 137/68 98 Weight Weight 291 lb 2 oz I&O: 10/18/19 10/19/19 10/20/19 06:59 06:59 06:59 Intake Total 2120 400 Output Total 5 Balance 2115 400 Result Diagrams: 10/19/19 04:34 10/19/19 04:34 Additional Labs: Accuchecks 10/19/19 10/19/19 10/18/19 11:05 04:58 20:57 POC Glucose 253 H 265 H 309 H 10/18/19 17:01 POC Glucose 239 H EKG Reviewed by me: Yes Hospitalist ROS - Review of Systems ENT: denies: ear pain, ear discharge, nose pain, nose discharge, nose congestion , mouth pain, mouth swelling, throat pain, throat swelling, other Respiratory: denies: cough, dry, shortness of breath, hemoptysis, SOB with excertion, pleuritic pain, sputum, wheezing, other Cardiovascular: denies: chest pain, palpitations, orthopnea, paroxysmal noc. dyspnea, edema, light headedness, other Gastrointestinal: denies: nausea, vomiting, abdominal pain, diarrhea, constipation, melena, hematochezia, other Genitourinary: denies: dysuria, frequency, incontinence, hematuria, retention, other Musculoskeletal: denies: neck pain, shoulder pain, arm pain, back pain, hand pain, leg pain, foot pain, other - Medication Medications: Active Medications Generic Name Dose Route Start Last Admin Trade Name Freq PRN Reason Stop Dose Admin Acetaminophen 650 mg 10/15/19 13:25 10/19/19 08:43 Tylenol PO 650 mg Q4H PRN Administration Headache/Fever Aspirin 325 mg 10/16/19 09:00 10/19/19 05:31 Ecotrin PO 325 mg DAILY ABDOULAYE Administration Atorvastatin Calcium 40 mg 10/16/19 21:00 10/18/19 20:56 Lipitor PO 40 mg HS ABDOULAYE Administration Famotidine 20 mg 10/15/19 21:00 10/19/19 05:30 Pepcid PO 20 mg BID ABDOULAYE Administration Sodium Chloride 1,000 mls @ 100 mls/hr 10/19/19 06:00 10/19/19 05:31 Normal Saline 0.9% IV 1,000 mls .Q10H ABDOULAYE Administration Insulin Glargine 30 units/ 0.3 mls @ 0 mls/hr 10/19/19 09:00 10/19/19 08:40 Miscellaneous Medication SC Not Given QAM ABDOULAYE Insulin Glargine 10 units/ 0.1 mls @ 0 mls/hr 10/18/19 21:00 10/18/19 20:56 Miscellaneous Medication SC 0.1 mls HS ABDOULAYE Administration Insulin Human Lispro 0 units 10/17/19 05:39 10/18/19 17:55 Humalog SC 4 units .MODERATE SLIDING SC PRN Administration Moderate Correctional Scale Levothyroxine Sodium 150 mcg 10/17/19 06:00 10/19/19 05:31 Synthroid PO 150 mcg 0600 ABDOULAYE Administration Lisinopril 10 mg 10/18/19 21:00 10/18/19 20:56 Zestril PO 10 mg HS ABDOULAYE Administration Magnesium Oxide 400 mg 10/17/19 09:00 10/19/19 05:30 Magnesium Oxide PO 400 mg DAILY ABDOULAYE Administration Metoprolol Succinate 50 mg 10/17/19 09:00 10/19/19 05:30 Toprol Xl PO 50 mg DAILY ABDOULAYE Administration Potassium Chloride 20 meq 10/17/19 08:00 10/19/19 05:30 K-Dur PO 20 meq QAM-WM ABDOULAYE Administration - Exam General Appearance: NAD, awake alert Eye: PERRL, anicteric sclera ENT: normocephalic atraumatic, no oropharyngeal lesions Neck: supple, symmetric, no JVD, no thyromegaly Heart: RRR, no murmur, no gallops, no rubs Respiratory: CTAB, no wheezes, no rales, no ronchi Gastrointestinal: soft, non-tender, non-distended, normal bowel sounds Extremities: no cyanosis, no clubbing, no edema Skin: normal turgor, no lesions Neurological: no focal deficits Musculoskeletal: normal tone, normal strength Psychiatric: normal affect, normal behavior Hosp A/P (1) ACS (acute coronary syndrome) Code(s): I24.9 - ACUTE ISCHEMIC HEART DISEASE, UNSPECIFIED Status: Acute (2) Acute non-ST elevation myocardial infarction (NSTEMI) Code(s): I21.4 - NON-ST ELEVATION (NSTEMI) MYOCARDIAL INFARCTION Status: Acute (3) Diabetes mellitus Code(s): E11.9 - TYPE 2 DIABETES MELLITUS WITHOUT COMPLICATIONS Status: Acute Qualifiers: Diabetes mellitus type: type 2 Diabetes mellitus terminal makeup operator insulin use: with terminal makeup operator use (4) Dyslipidemia Code(s): E78.5 - HYPERLIPIDEMIA, UNSPECIFIED Status: Chronic (5) Hypoglycemia due to insulin Code(s): E16.0 - DRUG-INDUCED HYPOGLYCEMIA WITHOUT COMA; T38.3X5A - ADVERSE EFFECT OF INSULIN AND ORAL HYPOGLYCEMIC DRUGS, INIT Status: Resolved (6) Hypokalemia Code(s): E87.6 - HYPOKALEMIA Status: Resolved (7) Hypomagnesemia Code(s): E83.42 - HYPOMAGNESEMIA Status: Resolved (8) Obesity (BMI 35.0-39.9 without comorbidity) Code(s): E66.9 - OBESITY, UNSPECIFIED Status: Chronic (9) Paroxysmal tachycardia Code(s): I47.9 - PAROXYSMAL TACHYCARDIA, UNSPECIFIED Status: Resolved - Plan old records reviewed/req, plan discussed w/ family 10/18/19 repeat labs tomorrow, tomorrow plan for cardiac cath, medication reviewed and continue to provide symptomatic treatment 10/19/19 pt found with severe left main disease and he will need CABG, CV surgery has seen him, discussed with pt and his will increase dose of insulin for diabetes control
[2019-10-19] MEDS ORDERED: Communication Order-Pharmacy FS SCH (15:14)
[2019-10-19] MEDS ORDERED: Cepastat Lozenges 1 LOZ PO PRN (16:22)
[2019-10-19] MEDS: HumaLOG 300 UNITS/3 ML VIAL SC PRN (17:58)
[2019-10-19] MEDS: Atorvastatin Calcium 40 MG TAB PO SCH (20:59)
[2019-10-19] MEDS: Lisinopril 10 MG TAB PO SCH (20:59)
[2019-10-19] MEDS: Insulin Glargine 40 UNITS in Pre-Filled Syringe 1 EACH SC SCH (20:59)
[2019-10-19] MEDS ORDERED: Insulin Glargine 30 UNITS in Pre-Filled Syringe 1 EACH SC SCH (21:00)
[2019-10-20] MEDS: Sodium Chloride 0.9% 1,000 ML IV SCH ×2 (00:30→12:32)
[2019-10-20] MEDS: Levothyroxine 150 MCG TAB PO SCH (05:33)
[2019-10-20] MEDS: Potassium Chloride 20 MEQ TAB PO SCH (09:29)
[2019-10-20] MEDS: Aspirin 325 mg Enteric Coated Tablet PO SCH (09:29)
[2019-10-20] MEDS: Famotidine 20 MG TAB PO SCH ×2 (09:29→21:07)
[2019-10-20] MEDS: Magnesium Oxide 400 MG TAB PO SCH (09:29)
[2019-10-20] MEDS: Insulin Glargine 40 UNITS in Pre-Filled Syringe 1 EACH SC SCH ×2 (09:30→21:04)
[2019-10-20] MEDS: HumaLOG 300 UNITS/3 ML VIAL SC PRN ×3 (09:31→17:47)
--- NOTE | 2019-10-20 12:21 | PDOC.HOSPP ---
- Subjective Encounter Date: 10/20/19 Encounter Time: 09:00 Subjective: Expresses no specific complaint. - Objective Vital Signs & Weight: Vital Signs (12 hours) Temp Pulse Resp BP BP BP Pulse Ox 10/20/19 11:35 98.3 F 74 14 130/61 96 10/20/19 07:35 97.8 F 76 18 169/80 H 98 10/20/19 03:47 97.9 F 70 18 160/67 H 97 Weight Weight 286 lb 6 oz I&O: 10/19/19 10/20/19 10/21/19 06:59 06:59 06:59 Intake Total 400 2210 Output Total 2275 Balance 400 -65 Result Diagrams: 10/19/19 04:34 10/19/19 04:34 Additional Labs: Accuchecks 10/20/19 10/20/19 10/19/19 08:08 05:29 21:00 POC Glucose 227 H 256 H 214 H 10/19/19 17:50 POC Glucose 248 H Hospitalist ROS - Medication Medications: Active Medications Generic Name Dose Route Start Last Admin Trade Name Freq PRN Reason Stop Dose Admin Acetaminophen 650 mg 10/15/19 13:25 10/19/19 08:43 Tylenol PO 10/23/19 08:00 650 mg Q4H PRN Administration Headache/Fever Aspirin 325 mg 10/16/19 09:00 10/20/19 09:29 Ecotrin PO 10/23/19 08:00 325 mg DAILY ABDOULAYE Administration Atorvastatin Calcium 40 mg 10/16/19 21:00 10/19/19 20:59 Lipitor PO 10/23/19 08:00 40 mg HS ABDOULAYE Administration Famotidine 20 mg 10/15/19 21:00 10/20/19 09:29 Pepcid PO 10/23/19 08:00 20 mg BID ABDOULAYE Administration Sodium Chloride 1,000 mls @ 100 mls/hr 10/19/19 06:00 10/20/19 00:30 Normal Saline 0.9% IV 10/23/19 08:00 Not Given .Q10H ABDOULAYE Insulin Glargine 40 units/ 0.4 mls @ 0 mls/hr 10/19/19 21:00 10/19/19 20:59 Miscellaneous Medication SC 10/23/19 08:00 0.4 mls HS ABDOULAYE Administration As Directed Insulin Glargine 40 units/ 0.4 mls @ 0 mls/hr 10/20/19 09:00 10/20/19 09:30 Miscellaneous Medication SC 10/23/19 08:00 0.4 mls QAM ABDOULAYE Administration As Directed Insulin Human Lispro 0 units 10/17/19 05:39 10/20/19 09:31 Humalog SC 10/23/19 08:00 4 units .MODERATE SLIDING SC PRN Administration Moderate Correctional Scale Levothyroxine Sodium 150 mcg 10/17/19 06:00 10/20/19 05:33 Synthroid PO 10/23/19 08:00 150 mcg 0600 ABDOULAYE Administration Lisinopril 10 mg 10/18/19 21:00 10/19/19 20:59 Zestril PO 10 mg HS ABDOULAYE Administration Magnesium Oxide 400 mg 10/17/19 09:00 10/20/19 09:29 Magnesium Oxide PO 10/23/19 08:00 400 mg DAILY ABDOULAYE Administration Metoprolol Succinate 100 mg 10/20/19 09:00 10/20/19 09:30 Toprol Xl PO 100 mg DAILY ABDOULAYE Administration Potassium Chloride 20 meq 10/17/19 08:00 10/20/19 09:29 K-Dur PO 10/23/19 08:00 20 meq QAM-WM ABDOULAYE Administration - Exam General Appearance: NAD Neck: no JVD Heart: RRR Respiratory: CTAB Gastrointestinal: soft Extremities: no edema Neurological: no weakness Psychiatric: normal affect Hosp A/P (1) HTN (hypertension) Code(s): I10 - ESSENTIAL (PRIMARY) HYPERTENSION Status: Acute (2) ACS (acute coronary syndrome) Code(s): I24.9 - ACUTE ISCHEMIC HEART DISEASE, UNSPECIFIED Status: Acute (3) Diabetes mellitus Code(s): E11.9 - TYPE 2 DIABETES MELLITUS WITHOUT COMPLICATIONS Status: Acute Qualifiers: Diabetes mellitus type: type 2 Diabetes mellitus ferry terminal agent insulin use: with ferry terminal agent use (4) Dyslipidemia Code(s): E78.5 - HYPERLIPIDEMIA, UNSPECIFIED Status: Chronic (5) Obesity (BMI 35.0-39.9 without comorbidity) Code(s): E66.9 - OBESITY, UNSPECIFIED Status: Chronic - Plan Continue current therapy.. Continue sliding scale.. For CABG on Wednesday.
--- NOTE | 2019-10-20 12:28 | PDOC.CPN ---
- Subjective Date: 10/20/19 Time: 12:33 Interval history: The pt seen and examined. No overnight events. No cardiac complaints. - Objective Allergies/Adverse Reactions: Allergies Allergy/AdvReac Type Severity Reaction Status Date / Time azithromycin Allergy Verified 10/15/19 17:41 Visit Medications: Current Medications Acetaminophen (Tylenol) 650 mg PO Q4H PRN PRN Reason: Headache/Fever Stop: 10/23/19 08:00 Last Admin: 10/19/19 08:43 Dose: 650 mg Acetaminophen/Codeine Phosphate (Tylenol #3) 1 tab PO Q4H PRN PRN Reason: Mild Pain (1-3) Stop: 10/23/19 08:00 Acetaminophen/Codeine Phosphate (Tylenol #3) 2 tab PO Q4H PRN PRN Reason: Moderate Pain (4-6) Stop: 10/23/19 08:00 Hydrocodone Bitart/Acetaminophen ([place] 5/325) 1 tab PO Q4H PRN PRN Reason: Severe Pain (7-10) Stop: 10/23/19 08:00 Artificial Tears (Tears Naturale) 2 drop EA EYE PRN PRN PRN Reason: Dry Eyes Stop: 10/23/19 08:00 Aspirin (Ecotrin) 325 mg PO DAILY [facility] Stop: 10/23/19 08:00 Last Admin: 10/20/19 09:29 Dose: 325 mg Atorvastatin Calcium (Lipitor) 40 mg PO HS [facility] Stop: 10/23/19 08:00 Last Admin: 10/19/19 20:59 Dose: 40 mg Bisacodyl (Dulcolax) 10 mg [place] DAILYPRN PRN PRN Reason: Constipation Stop: 10/23/19 08:00 Calcium Carbonate (Tums) 1,000 mg PO Q4H PRN PRN Reason: Heartburn or Indigestion Stop: 10/23/19 08:00 Dextrose/Water (Dextrose 50%) 25 gm SLOW IVP PRN PRN PRN Reason: Hypoglycemia Stop: 10/23/19 08:00 Famotidine (Pepcid) 20 mg PO BID [facility] Stop: 10/23/19 08:00 Last Admin: 10/20/19 09:29 Dose: 20 mg Glucagon (Glucagon) 1 mg IM PRN PRN PRN Reason: Hypoglycemia Stop: 10/23/19 08:00 Guaifenesin (Robitussin Sf) 200 mg PO Q4H PRN PRN Reason: Cough Stop: 10/23/19 08:00 Hydralazine HCl (Apresoline) 10 mg SLOW IVP Q4H PRN PRN Reason: SBP > 180 and HR < 70 Stop: 10/23/19 08:00 Dextrose/Water (D5w) 1,000 mls @ 0 mls/hr IV .Q0M PRN PRN Reason: Hypoglycemia Stop: 10/23/19 08:00 Insulin Glargine 40 units/ (Miscellaneous Medication) 0.4 mls @ 0 mls/hr SC [facility] Stop: 10/23/19 08:00 Last Admin: 10/19/19 20:59 Dose: 0.4 mls Insulin Glargine 40 units/ (Miscellaneous Medication) 0.4 mls @ 0 mls/hr [facility] [place] Stop: 10/23/19 08:00 Last Admin: 10/20/19 09:30 Dose: 0.4 mls Cefazolin Sodium/Dextrose 2 gm (/ Device) 50 mls @ 100 mls/hr IVPB Q8HR [facility] Insulin Human Lispro (Humalog) 0 units SC .MODERATE SLIDING SC PRN PRN Reason: Moderate Correctional Scale Stop: 10/23/19 08:00 Last Admin: 10/20/19 09:31 Dose: 4 units Levothyroxine Sodium (Synthroid) 150 mcg PO 0600 [facility] Stop: 10/23/19 08:00 Last Admin: 10/20/19 05:33 Dose: 150 mcg Lisinopril (Zestril) 10 mg PO [facility] Last Admin: 10/19/19 20:59 Dose: 10 mg Loperamide HCl (Imodium) 2 mg PO PRN PRN PRN Reason: Diarrhea/Loose Stools Stop: 10/23/19 08:00 Loratadine (Claritin) 10 mg PO DAILYPRN PRN PRN Reason: Sinus Symptoms Stop: 10/23/19 08:00 Magnesium Oxide (Magnesium Oxide) 400 mg PO DAILY [facility] Stop: 10/23/19 08:00 Last Admin: 10/20/19 09:29 Dose: 400 mg Metoprolol Succinate (Toprol Xl) 100 mg PO DAILY [facility] Last Admin: 10/20/19 09:30 Dose: 100 mg Miscellaneous Information (Communication Order-Pharmacy) 1 each FS ONE [facility] Stop: 10/23/19 09:00 Nitroglycerin (Nitrostat) 0.4 mg SL Q5MIN PRN PRN Reason: Chest Pain Stop: 10/23/19 08:00 Nitroglycerin (Nitrostat) 0.4 mg SL Q5MIN PRN PRN Reason: Chest Pain Stop: 10/23/19 08:00 Ondansetron HCl (Zofran Odt) 4 mg PO Q6H PRN PRN Reason: Nausea/Vomiting Stop: 10/23/19 08:00 Ondansetron HCl (Zofran) 4 mg IVP Q6H PRN PRN Reason: Nausea/Vomiting Stop: 10/23/19 08:00 Potassium Chloride (K-Dur) 20 meq PO QAM-WM [facility] Stop: 10/23/19 08:00 Last Admin: 10/20/19 09:29 Dose: 20 meq Senna/Docusate Sodium (Senokot S) 2 tab PO BIDPRN PRN PRN Reason: Constipation Stop: 10/23/19 08:00 Sodium Chloride (Flush - Normal Saline) 10 ml IVF PRN PRN PRN Reason: Saline Flush Stop: 10/23/19 08:00 Sodium Chloride ([place] 0.65%) 0 ml EA NARE QIDPRN PRN PRN Reason: Nasal Congestion Stop: 10/23/19 08:00 Throat Lozenges (Cepastat Lozenges) 1 jeanine PO Q2H PRN PRN Reason: Sore Throat Stop: 10/23/19 08:00 Zolpidem Tartrate (Ambien) 5 mg PO HSPRN PRN PRN Reason: Insomnia Stop: 10/23/19 08:00 Vital Signs & Weight: Vital Signs Temp Pulse Resp BP BP BP Pulse Ox 10/20/19 11:35 98.3 F 74 14 130/61 96 10/20/19 07:35 97.8 F 76 18 169/80 H 98 10/20/19 03:47 97.9 F 70 18 160/67 H 97 Weight 286 lb 6 oz - Physical Exam General: alert & oriented x3 HEENT: mucus membranes moist Neck: supple neck Cardiac: regular rate and rhythm, S1/S2 Lungs: clear to auscultation Neuro: cranial nerve 2-12 intact - Labs Result Diagrams: 10/19/19 04:34 10/19/19 04:34 Troponin/CKMB Troponin I 0.095 ng/mL (< 0.028) H 10/17/19 04:44 - Telemetry Sinus rhythms and dysrhythmias: sinus rhythm - Assessment/Plan Assessment/Plan: 1. NSTEMI with s/p LHC with 99% stenosis in LAD - plan for CABG on Wednesday; On Metoprolol, Lisinopril, and Statin; ASA is already on hold for Sx on Wednesday 2. HTN - Metoprolol was increased to 100mg qd from today 3. HLD - on Statin 4. DM type 2 5. Hypokalemia - resolved 6. Hypomagnesemia - resolved 7. Obese MAR reviewed * Echo with EF 55-60%,normal valves without regurgitation or stenosis. * Plan for CABG on Wednesday pt. seen and eval. by me. I agree with the A/P by the DENTAL INSTRUMENT MAKER. waiting for CABG on Wednesday. Chest clear. RRR.
[2019-10-20] MEDS: Atorvastatin Calcium 40 MG TAB PO SCH (21:07)
[2019-10-20] MEDS: Lisinopril 10 MG TAB PO SCH (21:07)
[2019-10-20] MEDS: Acetaminophen 325 MG TAB PO PRN (23:02)
[2019-10-21] MEDS: Levothyroxine 150 MCG TAB PO SCH (05:59)
[2019-10-21] MEDS: HumaLOG 300 UNITS/3 ML VIAL SC PRN ×2 (08:24→18:29)
[2019-10-21] MEDS: Insulin Glargine 40 UNITS in Pre-Filled Syringe 1 EACH SC SCH ×2 (08:24→21:28)
[2019-10-21] MEDS: Potassium Chloride 20 MEQ TAB PO SCH (08:25)
[2019-10-21] MEDS: Aspirin 325 mg Enteric Coated Tablet PO SCH (08:25)
[2019-10-21] MEDS: Famotidine 20 MG TAB PO SCH ×2 (08:25→21:29)
[2019-10-21] MEDS: Magnesium Oxide 400 MG TAB PO SCH (08:25)
--- NOTE | 2019-10-21 11:29 | PDOC.HOSPP ---
- Subjective Encounter Date: 10/21/19 Encounter Time: 09:00 Subjective: No complaint.. - Objective Vital Signs & Weight: Vital Signs (12 hours) Temp Pulse Resp BP Pulse Ox 10/21/19 07:45 98.2 F 78 18 155/73 H 97 10/21/19 03:49 97.5 F L 56 L 18 127/63 96 Weight Weight 288 lb I&O: 10/20/19 10/21/19 10/22/19 06:59 06:59 06:59 Intake Total 2210 2370 Output Total 2838 1699 Balance -65 -155 Result Diagrams: 10/19/19 04:34 10/19/19 04:34 Additional Labs: Accuchecks 10/21/19 10/21/19 10/21/19 10:52 08:00 05:51 POC Glucose 141 H 157 H 150 H 10/20/19 10/20/19 10/20/19 21:01 17:24 11:36 POC Glucose 188 H 195 H 257 H Hospitalist ROS - Medication Medications: Active Medications Generic Name Dose Route Start Last Admin Trade Name Freq PRN Reason Stop Dose Admin Acetaminophen 650 mg 10/15/19 13:25 10/20/19 23:02 Tylenol PO 10/23/19 08:00 650 mg Q4H PRN Administration Headache/Fever Aspirin 325 mg 10/16/19 09:00 10/21/19 08:25 Ecotrin PO 10/23/19 08:00 325 mg DAILY [facility] Administration Atorvastatin Calcium 40 mg 10/16/19 21:00 10/20/19 21:07 Lipitor PO 10/23/19 08:00 40 mg HS [facility] Administration Famotidine 20 mg 10/15/19 21:00 10/21/19 08:25 Pepcid PO 10/23/19 08:00 20 mg BID [facility] Administration Insulin Glargine 40 units/ 0.4 mls @ 0 mls/hr 10/19/19 21:00 10/20/19 21:04 Miscellaneous Medication SC 10/23/19 08:00 0.4 mls HS ABDOULAYE Administration As Directed Insulin Glargine 40 units/ 0.4 mls @ 0 mls/hr 10/20/19 09:00 10/21/19 08:24 Miscellaneous Medication SC 10/23/19 08:00 0.4 mls QAM [facility] Administration As Directed Insulin Human Lispro 0 units 10/17/19 05:39 10/21/19 08:24 Humalog SC 10/23/19 08:00 2 units .MODERATE SLIDING SC PRN Administration Moderate Correctional Scale Levothyroxine Sodium 150 mcg 10/17/19 06:00 10/21/19 05:59 Synthroid PO 10/23/19 08:00 150 mcg 0600 [facility] Administration Lisinopril 10 mg 10/18/19 21:00 10/20/19 21:07 Zestril PO 10 mg HS [facility] Administration Magnesium Oxide 400 mg 10/17/19 09:00 10/21/19 08:25 Magnesium Oxide PO 10/23/19 08:00 400 mg DAILY [facility] Administration Metoprolol Succinate 100 mg 10/20/19 09:00 10/21/19 08:25 Toprol Xl PO 100 mg DAILY [facility] Administration Potassium Chloride 20 meq 10/17/19 08:00 10/21/19 08:25 K-Dur PO 10/23/19 08:00 20 meq QAM-WM [facility]BDOULAYE Administration - Exam General Appearance: NAD Neck: no JVD Heart: RRR Respiratory: CTAB Gastrointestinal: soft Extremities: no edema Neurological: no weakness Psychiatric: normal affect Hosp A/P (1) HTN (hypertension) Code(s): I10 - ESSENTIAL (PRIMARY) HYPERTENSION Status: Acute (2) ACS (acute coronary syndrome) Code(s): I24.9 - ACUTE ISCHEMIC HEART DISEASE, UNSPECIFIED Status: Acute (3) Diabetes mellitus Code(s): E11.9 - TYPE 2 DIABETES MELLITUS WITHOUT COMPLICATIONS Status: Acute Qualifiers: Diabetes mellitus type: type 2 Diabetes mellitus rat exterminator insulin use: with rat exterminator use (4) Dyslipidemia Code(s): E78.5 - HYPERLIPIDEMIA, UNSPECIFIED Status: Chronic (5) Obesity (BMI 35.0-39.9 without comorbidity) Code(s): E66.9 - OBESITY, UNSPECIFIED Status: Chronic - Plan Continue current therapy.. Continue sliding scale.. Possible CABG on Wednesday.
[2019-10-21] MEDS: Lisinopril 10 MG TAB PO SCH (21:29)
[2019-10-21] MEDS: Atorvastatin Calcium 40 MG TAB PO SCH (21:29)
[2019-10-21] MEDS: Loratadine 10 MG TAB PO PRN (21:30)
[2019-10-21] MEDS: Acetaminophen 325 MG TAB PO PRN (22:56)
[2019-10-22] MEDS: Levothyroxine 150 MCG TAB PO SCH (05:48)
[2019-10-22] MEDS: Insulin Glargine 40 UNITS in Pre-Filled Syringe 1 EACH SC SCH ×2 (08:27→20:59)
[2019-10-22] MEDS: Potassium Chloride 20 MEQ TAB PO SCH (08:27)
[2019-10-22] MEDS: HumaLOG 300 UNITS/3 ML VIAL SC PRN ×3 (08:27→18:07)
[2019-10-22] MEDS: Aspirin 325 mg Enteric Coated Tablet PO SCH (08:27)
[2019-10-22] MEDS: Magnesium Oxide 400 MG TAB PO SCH (08:27)
[2019-10-22] MEDS: Famotidine 20 MG TAB PO SCH ×2 (08:30→20:58)
--- NOTE | 2019-10-22 09:42 | PDOC.HOSPP ---
- Subjective Encounter Date: 10/22/19 Encounter Time: 09:25 Subjective: No specific complaint. - Objective Vital Signs & Weight: Vital Signs (12 hours) Temp Pulse Resp BP BP Pulse Ox 10/22/19 07:17 97.7 F 68 18 133/63 98 10/22/19 03:30 97.8 F 59 L 16 129/60 97 Weight Weight 286 lb 11.2 oz I&O: 10/21/19 10/22/19 10/23/19 06:59 06:59 06:59 Intake Total 2370 1930 Output Total 8598 5040 Balance -155 -1020 Result Diagrams: 10/19/19 04:34 10/19/19 04:34 Additional Labs: Accuchecks 10/22/19 10/21/19 10/21/19 07:15 21:20 18:23 POC Glucose 166 H 190 H 194 H 10/21/19 10/21/19 17:07 10:52 POC Glucose 216 H 141 H Hospitalist ROS - Medication Medications: Active Medications Generic Name Dose Route Start Last Admin Trade Name Freq PRN Reason Stop Dose Admin Acetaminophen 650 mg 10/15/19 13:25 10/21/19 22:56 Tylenol PO 10/23/19 08:00 650 mg Q4H PRN Administration Headache/Fever Aspirin 325 mg 10/16/19 09:00 10/22/19 08:27 Ecotrin PO 10/23/19 08:00 325 mg DAILY [facility] Administration Atorvastatin Calcium 40 mg 10/16/19 21:00 10/21/19 21:29 Lipitor PO 10/23/19 08:00 40 mg HS [facility]E Administration Famotidine 20 mg 10/15/19 21:00 10/22/19 08:30 Pepcid PO 10/23/19 08:00 Not Given BID [facility] Insulin Glargine 40 units/ 0.4 mls @ 0 mls/hr 10/19/19 21:00 10/21/19 21:28 Miscellaneous Medication SC 10/23/19 08:00 0.4 mls HS ABDOULAYE Administration As Directed Insulin Glargine 40 units/ 0.4 mls @ 0 mls/hr 10/20/19 09:00 10/22/19 08:27 Miscellaneous Medication SC 10/23/19 08:00 0.4 mls QAM [facility]BDOULAYE Administration As Directed Insulin Human Lispro 0 units 10/17/19 05:39 10/22/19 08:27 Humalog SC 10/23/19 08:00 2 units .MODERATE SLIDING SC PRN Administration Moderate Correctional Scale Levothyroxine Sodium 150 mcg 10/17/19 06:00 10/22/19 05:48 Synthroid PO 10/23/19 08:00 150 mcg 0600 [facility] Administration Lisinopril 10 mg 10/18/19 21:00 10/21/19 21:29 Zestril PO 10 mg HS [facility]E Administration Loratadine 10 mg 10/18/19 08:24 10/21/19 21:30 Claritin PO 10/23/19 08:00 10 mg DAILYPRN PRN Administration Sinus Symptoms Magnesium Oxide 400 mg 10/17/19 09:00 10/22/19 08:27 Magnesium Oxide PO 10/23/19 08:00 400 mg DAILY [facility] Administration Metoprolol Succinate 100 mg 10/20/19 09:00 10/22/19 08:27 Toprol Xl PO 100 mg DAILY [facility] Administration Potassium Chloride 20 meq 10/17/19 08:00 10/22/19 08:27 K-Dur PO 10/23/19 08:00 20 meq QAM-WM ABDOULAYE Administration - Exam Eye: anicteric sclera Neck: no JVD Heart: RRR Respiratory: CTAB Gastrointestinal: soft Extremities: no edema Psychiatric: normal affect Hosp A/P (1) HTN (hypertension) Code(s): I10 - ESSENTIAL (PRIMARY) HYPERTENSION Status: Acute (2) ACS (acute coronary syndrome) Code(s): I24.9 - ACUTE ISCHEMIC HEART DISEASE, UNSPECIFIED Status: Acute (3) Diabetes mellitus Code(s): E11.9 - TYPE 2 DIABETES MELLITUS WITHOUT COMPLICATIONS Status: Acute Qualifiers: Diabetes mellitus type: type 2 Diabetes mellitus retirement insulin use: with terminal system operator use (4) Dyslipidemia Code(s): E78.5 - HYPERLIPIDEMIA, UNSPECIFIED Status: Chronic (5) Obesity (BMI 35.0-39.9 without comorbidity) Code(s): E66.9 - OBESITY, UNSPECIFIED Status: Chronic - Plan Continue current therapy.. Continue sliding scale.. For CABG on Wednesday.
[2019-10-22] MEDS: Atorvastatin Calcium 40 MG TAB PO SCH (20:58)
[2019-10-22] MEDS: Lisinopril 10 MG TAB PO SCH (20:58)
[2019-10-22] MEDS: Loratadine 10 MG TAB PO PRN (21:03)
[2019-10-22 23:40] LABS: #Basophils 0.1 thou/uL (0.0-0.2); #Eosinphils 0.3 thou/uL (0.0-0.7); #Lymphocytes 4.5 thou/uL (1.20-3.40); #Monocytes 0.9 thou/uL (0.11-0.59); #Neutrophils 7.1 thou/uL (1.40-6.50); %Basophils 0.9 % (0.0-1.0); %Eosinophils 2.1 % (0.0-10.0); %Lymphocytes 35.1 % (21.0-51.0); %Monocytes 6.7 % (0.0-10.0); %Neutrophils 55.2 % (42.0-75.0); Hemoglobin 15.2 g/dL (14.0-18.0); Mean Corpuscular HGB CONC 35.5 g/dL (32.0-36.0); Mean Corpuscular Hemoglobin 33.7 pg (27.0-31.0); Mean Corpuscular Volume 95.2 fL (78.0-98.0); Mean Platelet Volume 8.1 fL (7.4-10.4); Platelet Count 298 thou/uL (130-400); RBC Distribution Width 11.7 % (11.5-14.5); Red Blood Cell (RBC) Count 4.52 mill/uL (4.70-6.10); White Blood Cell (WBC) Count 12.8 thou/uL (4.8-10.8)
[2019-10-22 23:47] LABS: PTT 27.8 SEC (22.9-36.1); Prothrombin Time 13.1 SEC (12.0-14.7)
[2019-10-22 23:54] LABS: Anion Gap 12 mmol/L (10-20); BUN (Urea Nitrogen) 11 mg/dL (8.4-25.7); Calc. Creatinine Clearance 144 mL/min (70-130); Calcium 9.5 mg/dL (7.8-10.44); Carbon Dioxide 28 mmol/L (22-29); Chloride 102 mmol/L (98-107); Estimated GFR-MDRD 71; Glucose 140 mg/dL (70-105); Potassium 4.5 mmol/L (3.5-5.1); Sodium 137 mmol/L (136-145)
[2019-10-23] MEDS ORDERED: CEFAZOLIN 2 GM in Premix Bag 1 BAG IVPB SCH (06:00)
[2019-10-23] MEDS: Levothyroxine 150 MCG TAB PO SCH (06:05)
[2019-10-23] MEDS ORDERED: Bupivacaine PF 0.5% 30 ML VIAL ONE (06:33)
[2019-10-23] MEDS ORDERED: Dexamethasone 4 mg/ml Vial ONE (06:33)
[2019-10-23] MEDS ORDERED: Albumin 5% 0 ML ONE (06:33)
[2019-10-23] MEDS ORDERED: EPINEPHrine 1 MG/ML AMP ONE (06:33)
[2019-10-23] MEDS ORDERED: Albumin 5% 500 ML ONE (06:41)
[2019-10-23] MEDS ORDERED: Heparin 10,000 UNITS/1 ML VIAL 30,000 UNITS in Sodium Chloride 0.9% 1,000 ML FS SCH (06:45)
[2019-10-23] MEDS ORDERED: Midazolam HCl 5 mg/5 ml Vial ONE (06:49)
[2019-10-23] MEDS ORDERED: Fentanyl 250 MCG/5 ML VIAL ONE (06:49)
[2019-10-23] MEDS ORDERED: Dexmedetomidine 200 MCG/2 ML VIAL ONE (06:49)
[2019-10-23] MEDS ORDERED: Midazolam HCl 2 mg/2 ml Vial ONE (07:07)
[2019-10-23] MEDS ORDERED: CEFAZOLIN 1 GM VIAL SLOW IVP SCH (07:30)
[2019-10-23] MEDS ORDERED: Insulin Regular 300 UNITS/3 ML VIAL ONE (08:43)
[2019-10-23] MEDS ORDERED: Vecuronium 10 MG VIAL ONE ×2 (08:43→10:20)
[2019-10-23] MEDS ORDERED: PHENYLEPHRINE-NS 100 MCG/ML 10 ML SYRINGE ONE (08:44)
[2019-10-23] MEDS ORDERED: Norepinephrine 4 MG/4 ML VIAL ONE (10:20)
[2019-10-23] MEDS ORDERED: Calcium Chloride 1 GM/10 ML Abboject SYRINGE ONE (10:20)
[2019-10-23] MEDS ORDERED: Cardioplegic Soln 1,000 ML BAG ONE (10:20)
[2019-10-23] MEDS ORDERED: Thrombin 5000 UNITS/5 ML VIAL ONE (10:20)
[2019-10-23] MEDS ORDERED: Nitroglycerin 50 MG/250 ML BOT ONE (10:20)
[2019-10-23] MEDS ORDERED: Potassium Chloride 60 MEQ/30 ML VIAL ONE (10:20)
[2019-10-23] MEDS ORDERED: Heparin 30,000 units/30 ml VIAL ONE (10:20)
[2019-10-23] MEDS ORDERED: Lidocaine 2% PF 5 ML VIAL ONE (10:20)
[2019-10-23] MEDS ORDERED: Ondansetron PF 4 MG/2 ML Vial ONE (10:20)
[2019-10-23] MEDS ORDERED: Magnesium Sulfate 1 GM/2 ML VIAL ONE (10:20)
[2019-10-23] MEDS ORDERED: Papaverine 60 MG/2 ML VIAL ONE (10:20)
[2019-10-23] MEDS ORDERED: Sodium Bicarb 50 MEQ/50 ML Abboject 8.4% SYRINGE ONE (10:20)
[2019-10-23] MEDS ORDERED: Heparin 5,000 UNITS/ML VIAL ONE (10:20)
[2019-10-23] MEDS ORDERED: Lidocaine 1% PF 5 ML VIAL ONE (10:20)
[2019-10-23] MEDS ORDERED: Glycopyrrolate 0.2 MG/ML 5 ML SYRINGE ONE (10:20)
[2019-10-23] MEDS ORDERED: PROPOFOL 200 MG/20 ML VIAL ONE (10:20)
[2019-10-23] MEDS ORDERED: Protamine Sulfate 250 MG/25 ML VIAL ONE (10:20)
[2019-10-23] MEDS ORDERED: Aminocaproic Acid 5 GM/20 ML VIAL ONE (10:20)
[2019-10-23] MEDS ORDERED: Fentanyl 100 MCG/2 ML VIAL ONE (11:03)
[2019-10-23] MEDS ORDERED: D5 1/2 NS w/20 mEq KCL 1,000 ML IV SCH (11:20)
[2019-10-23] MEDS ORDERED: Ondansetron PF 4 MG/2 ML Vial IVP PRN (11:20)
[2019-10-23] MEDS ORDERED: Potassium Chloride 20 MEQ/100 ML PREMIX BAG IVPB PRN (11:20)
[2019-10-23] MEDS ORDERED: Post-Op Insulin Drip Protocol IVPB ONE (11:20)
[2019-10-23] MEDS ORDERED: Bisacodyl 10 MG SUPP PR PRN (11:20)
[2019-10-23] MEDS ORDERED: Morphine 2 MG/ML SYRINGE SLOW IVP PRN (11:20)
[2019-10-23] MEDS ORDERED: Guaifenesin DM 100-10/5 ML UDCUP PO PRN (11:20)
[2019-10-23] MEDS ORDERED: Norepinephrine 8 MG/0.9% NS 250 ML IVPB PRN (11:20)
[2019-10-23] MEDS ORDERED: Bisacodyl 5 MG TAB PO PRN (11:20)
[2019-10-23] MEDS ORDERED: Magnesium 2 GM/50 ML 2 GM in Premix Bag 1 BAG IVPB SCH (11:20)
[2019-10-23] MEDS ORDERED: Mag-Al 1200 mg/1200 mg/30 ML UDCUP PO PRN (11:20)
[2019-10-23] MEDS ORDERED: Hetastarch 6% 500 ML 500 ML IVPB PRN (11:20)
[2019-10-23] MEDS ORDERED: Nitroglycerin 50 MG/250 ML BOT 250 ML IVPB PRN (11:20)
[2019-10-23] MEDS ORDERED: hydrALAZINE 20 MG/ML VIAL SLOW IVP PRN (11:20)
[2019-10-23] MEDS ORDERED: Fentanyl 100 MCG/2 ML VIAL SLOW IVP PRN (11:20)
[2019-10-23] MEDS ORDERED: Ketorolac Tromethamine 30 MG/ML VIAL ONE (11:26)
[2019-10-23 11:30] LABS: Hemoglobin 12.7 g/dL (14.0-18.0); Mean Corpuscular HGB CONC 34.3 g/dL (32.0-36.0); Mean Corpuscular Hemoglobin 32.9 pg (27.0-31.0); Mean Platelet Volume 7.8 fL (7.4-10.4); Platelet Count 221 thou/uL (130-400); RBC Distribution Width 11.7 % (11.5-14.5); Red Blood Cell (RBC) Count 3.85 mill/uL (4.70-6.10); White Blood Cell (WBC) Count 20.7 thou/uL (4.8-10.8)
[2019-10-23] MEDS: Potassium Chloride 20 MEQ TAB PO SCH (11:30)
[2019-10-23 11:35] LABS: INR-International Normal Ratio 1.4; PTT 29.9 SEC (22.9-36.1); Prothrombin Time 16.7 SEC (12.0-14.7)
[2019-10-23] MEDS ORDERED: Insulin Regular 300 UNITS/3 ML VIAL SC PRN (11:37)
[2019-10-23] MEDS ORDERED: HUMULIN R 100 UNITS in Sodium Chloride 0.9% 100 ML IVPB SCH (11:37)
[2019-10-23] MEDS ORDERED: Dextrose 50% Abboject 50 ML SYRINGE SLOW IVP PRN (11:37)
[2019-10-23] MEDS ORDERED: Dextrose 5% in Water 1,000 ML IV PRN (11:37)
[2019-10-23 11:43] LABS: Actual Bicarbonate (HCO3a) 20.9 mEq/L (22-28); Base Excess (BEa) -5.2 mEq/L (-2.0 to +3.0); CO2 Tension 42.5 mmHg (35.0-45.0); Calcium, Ionized 1.11 mmol/L (1.12-1.30); Carboxyhemoglobin (COHb) 1.1 gm% (0.0-3.0); Hemoglobin (Hb) 13.5 g/dL (14.0-18.0); O2 Tension (PaO2) 89.6 mmHg (80.0-100.0); pH, Arterial 7.31 (7.35-7.45)
[2019-10-23 11:46] LABS: ALV-art Gradient 142.475 (0-20); Puncture Site ART LINE
[2019-10-23 11:56] LABS: Anion Gap 9 mmol/L (10-20); BUN (Urea Nitrogen) 11 mg/dL (8.4-25.7); Calc. Creatinine Clearance 175 mL/min (70-130); Calcium 7.6 mg/dL (7.8-10.44); Carbon Dioxide 25 mmol/L (22-29); Chloride 111 mmol/L (98-107); Estimated GFR-MDRD Greater than 90; Glucose 128 mg/dL (70-105); Potassium 3.9 mmol/L (3.5-5.1); Sodium 141 mmol/L (136-145)
[2019-10-23] MEDS: Ketorolac Tromethamine 30 MG/ML VIAL IVP SCH ×2 (12:00→17:35)
[2019-10-23 12:35] LABS: Band 15 % (5-11); Lymphocytes 18 % (21-51); MDiff Complete? YES; Monocytes 4 % (0-10); Neutrophil 63 % (42-75); Platelet Morphology Comment Appears Adequate; RBC Morphology Normal
--- NOTE | 2019-10-23 13:05 | PDOC.CPN ---
- Subjective Date: 10/23/19 Time: 13:05 Interval history: The pt seen and examined. No overnight events. Pt. underwent 2 vessel CABG today with PERAZA-> LAD and SVG-> diag. - Objective Allergies/Adverse Reactions: Allergies Allergy/AdvReac Type Severity Reaction Status Date / Time azithromycin Allergy Verified 10/15/19 17:41 Visit Medications: Current Medications Acetaminophen (Tylenol) 650 mg PO Q6H PRN PRN Reason: Headache/Fever Or Mild Pain Al Hydroxide/Mg Hydroxide (Maalox) 30 ml PO Q4H PRN PRN Reason: Indigestion Albumin Human (Albumin 5%) 12.5 gm IVPB Q6H PRN PRN Reason: To Maintain SBP> 90 mmHG Stop: 10/24/19 11:21 Albumin Human (Albumin 5%) 25 gm IVPB Q6H PRN PRN Reason: To Maintain SBP > 90 mmHG Stop: 10/24/19 11:21 Albuterol/Ipratropium (Duoneb) 3 ml NEB [id number] PRN PRN Reason: SHORTNESS OF BREATH Aspirin (Aspirin) 325 mg PO DAILY [facility] Atorvastatin Calcium (Lipitor) 20 mg PO QPM [facility] Bisacodyl (Dulcolax) 10 mg PO Q12H PRN PRN Reason: Constipation Bisacodyl (Dulcolax) 10 mg AR Q12H PRN PRN Reason: Constipation Dextrose/Water (Dextrose 50%) 25 gm SLOW IVP PRN PRN PRN Reason: PER HYPOGLYCEMIC PROTOCOL Famotidine (Pepcid) 20 mg SLOW IVP Q12HR [facility] Fentanyl (Sublimaze) 25 mcg SLOW IVP Q2H PRN PRN Reason: Moderate Pain (4-6) Stop: 10/25/19 10:38 Fentanyl (Sublimaze) 50 mcg SLOW IVP Q2H PRN PRN Reason: Severe Pain (7-10) Stop: 10/25/19 10:38 Glucagon (Glucagon) 1 mg SC PRN PRN PRN Reason: PER HYPOGLYCEMIC PROTOCOL Guaifenesin/Dextromethorphan (Robitussin Dm) 15 ml PO Q4H PRN PRN Reason: Cough Hydralazine HCl (Apresoline) 10 mg SLOW IVP Q6H PRN PRN Reason: To Maintain SBP< 140mmHG Cefazolin Sodium/Dextrose 2 gm (/ Device) 50 mls @ 100 mls/hr IVPB Q8HR [facility] Stop: 10/24/19 06:29 Potassium Chloride/Dextrose/Sod Cl (D5 1/2 Ns W/20 Meq Kcl) 1,000 mls @ 40 mls/ hr IV .Q24H [facility] Last Admin: 10/23/19 12:20 Dose: 1,000 mls Hetastarch/Sodium Chloride (Hespan) 500 mls @ 0 mls/hr IVPB PRN PRN PRN Reason: To Maintain SBP > 90mmHg Stop: 10/24/19 10:38 Norepinephrine Bitartrate (Levophed) 250 mls @ 0 mls/hr IVPB PRN PRN; Protocol PRN Reason: To maintain SBP > 90 mmHG Magnesium Sulfate 2 gm/ Device 50 mls @ 50 mls/hr IVPB NOW [facility] Stop: 10/23/19 14:00 Last Admin: 10/23/19 12:45 Dose: 50 mls Magnesium Sulfate 2 gm/ Device 50 mls @ 50 mls/hr IVPB QAM [facility] Stop: 10/25/19 09:59 Nitroglycerin/Dextrose (Nitroglycerin 50 Mg/250 Ml Bot) 250 mls @ 0 mls/hr IVPB PRN PRN; Protocol PRN Reason: To Maintain SBP< 140mmHG Insulin Human Regular 100 (units/ Sodium Chloride) 101 mls @ 0 mls/hr IVPB INF [facility]BDOULAYE; Protocol Dextrose/Water (D5w) 1,000 mls @ 0 mls/hr IV INF PRN PRN Reason: PRN HYPOGLYCEMIC PROTOCOL Insulin Glargine (Lantus) 0 units SC ONE PRN PRN Reason: PER OPEN HEART ORDERS Stop: 10/24/19 17:00 Insulin Human Regular (Humulin R) 0 units SC Q4H PRN; Protocol PRN Reason: POST OP SLIDING SCALE Ketorolac Tromethamine (Toradol) 30 mg IVP Q6HR [facility] Stop: 10/26/19 12:01 Morphine Sulfate (Morphine) 2 mg SLOW IVP Q15MIN PRN PRN Reason: Severe Pain (7-10) Ondansetron HCl (Zofran) 4 mg IVP Q6H PRN PRN Reason: Nausea/Vomiting Potassium Chloride (Kcl) 20 meq IVPB PRN PRN PRN Reason: K level </= 4.0 Sodium Chloride (Flush - Normal Saline) 10 ml IVF PRN PRN PRN Reason: Saline Flush Tramadol HCl (Ultram) 50 mg PO Q4H PRN PRN Reason: Pain Vital Signs & Weight: Vital Signs Temp Pulse Resp BP Pulse Ox 10/23/19 11:44 99 10/23/19 11:43 97.2 F L 10/23/19 04:07 97.6 F 63 18 123/56 L 97 Weight 281 lb 8 oz - Physical Exam General: alert & oriented x3 (extubated, breathing well. good incentive spirometry.) HEENT: mucus membranes moist Neck: supple neck Cardiac: regular rate and rhythm, S1/S2 Lungs: clear to auscultation, decreased breath sounds - Labs Result Diagrams: 10/23/19 17:10 10/23/19 17:10 Troponin/CKMB Troponin I 0.095 ng/mL (< 0.028) H 10/17/19 04:44 - Telemetry Sinus rhythms and dysrhythmias: sinus rhythm - Assessment/Plan Assessment/Plan: 1. CAD with s/p CABG x2 on 10/23/2019 - stable; on ASA and statin; not on BBlocker or RALPH/ARB due to hypotesive 2. HTN - will resume bblocker and RALPH/ARB with more stable VS 3. HLD - on Statin 4. DM type 2 - Isulin drip 5. Hypokalemia - resolved 6. Hypomagnesemia - resolved 7. Obese MAR reviewed * Echo with EF 55-60%,normal valves without regurgitation or stenosis. pt. seen and eval. by me. I agree with the A/P by the TRANSITION SOCIAL WORKER. He is doing well s/p CABG. Chest clear. RRR. No edema. Left thigh s/p vein graft removal.
[2019-10-23] MEDS: CEFAZOLIN 2 GM in Premix Bag 1 BAG IVPB SCH ×2 (13:20→22:55)
--- NOTE | 2019-10-23 13:25 | OP ---
DATE OF PROCEDURE: 10/23/2019 PREOPERATIVE DIAGNOSES: Coronary artery disease/hypertension/dyslipidemia/diabetes mellitus/obesity. POSTOPERATIVE DIAGNOSES: Coronary artery disease/hypertension/dyslipidemia/diabetes mellitus/obesity. PROCEDURES PERFORMED: Coronary artery bypass grafting x2 - 1. Left internal mammary artery to 3.0 mm left anterior descending artery - good conduit and target. 2. Reverse saphenous vein to 2.0 mm D1 - good conduit and target. ADVICE CLERK SURGEON: James Marino MD ANESTHESIA: General endotracheal, Dr. Morgan Garcia. PUMP TIME: 40 minutes. CROSS-CLAMP TIME: 26 minutes. LOW CORE TEMPERATURE: 34 degrees Celsius. RADIOLOGY PRACTITIONER ASSISTANT: Dominic Araiza. DRAINS: 24-[place] chest tubes x2. DRIPS: None. TRANSFUSIONS: None. DESCRIPTION OF PROCEDURE: After consent was obtained, the patient was brought to the operating room, placed in supine position on the operating table. Appropriate central line and monitors were placed and general endotracheal anesthesia was induced. Chest, abdomen, and legs were prepped and draped in usual sterile fashion. Greater saphenous vein was harvested from the left thigh utilizing skip incisions. Wounds were irrigated and closed in layers. Median sternotomy was performed. Left internal mammary artery was harvested as a pedicle graft. The patient was systemically heparinized. Distal pedicle was divided and infused with papaverine. Thymic fat and pericardium were divided with electrocautery. Pericardial stay sutures were placed. Aortic and atrial cannulation was performed. After adequate heparinization, retrograde prime was performed. The patient was placed on cardiopulmonary bypass. Aortic cross-clamp was applied and antegrade sanguineous cardioplegic arrest was obtained. 1 L of antegrade cold [place] cardioplegia was given. Topical cold solution was used. Reverse saphenous vein was anastomosed to diagonal in an end-to-side fashion with running 7-0 Prolene suture. Anastomosis was tested was hemostatic. Mammary artery was brought through a window and anastomosed to the LAD in an end-to-side fashion with running 7-0 Prolene suture. On release of mammary clamps, good hooding anastomosis and good distal flow. The saphenous vein was anastomosed to the aortic root with a running 6-0 Prolene suture. Cross-clamp was removed and graft was deaired. Anastomoses were inspected for hemostasis, which was good. The patient was warmed and weaned from cardiopulmonary bypass. After resumption of sinus rhythm, good hemodynamics, temperature greater than 36.5, bypass was discontinued. Transfusions were given. 24-[place] chest tubes were placed in mediastinum. Protamine was administered. Decannulation was performed. A pursestring suture was secured. After adequate hemostasis has been obtained, sternum was treated with vancomycin paste. The sternum was then closed with #7 wire, 3 in the manubrium and 1 in the distal sternum. Four zip ties were placed in the body of the sternum. Sternum was treated with platelet rich plasma and wires were twisted and buried. Zip ties were tightened and cut. Wounds were irrigated, treated with platelet poor plasma. Peristernal Marcaine block was performed. Wounds were irrigated and closed in multiple layers and Dermabond applied to skin. The patient tolerated the procedure well, was transferred to the intensive care in stable, but critical condition. Needle, sponge, and instruments counts were all reported as correct at the end of the procedure. Job ID: [id number]
[2019-10-23] MEDS: Fentanyl 100 MCG/2 ML VIAL SLOW IVP PRN ×3 (13:37→22:54)
--- NOTE | 2019-10-23 15:00 | RAD ---
PORTABLE CHEST: Date: 10/23/2019 HISTORY: Postop open heart surgery. COMPARISON: 10/15/19 study. FINDINGS: Heart size is enlarged. Postop sternotomy changes are seen. Right subclavian line is seen with cathet er tip overlying the distal superior vena cava. There are some atelectatic changes in the lung bases and chronic lung change seen. IMPRESSION: Cardiomegaly with postop sternotomy change. POS: ANTHONY
--- NOTE | 2019-10-23 16:39 | PDOC.HOSPP ---
- Subjective Encounter Date: 10/23/19 Encounter Time: 16:37 Subjective: The patient is s/p CABG today. He has no chest pain or shortness of breath. Originally presented with hypoglycemia with blood sugar 56, never had this problem before. Currently he is on levofed, insulin drip and IV fluids. Isaacs was placed today Patient was incidentally found to be tachycardic to heart rate 120 per daughter on admission, and discovered to have 99% lesion on LAD therefore gone for CABG today. - Objective Vital Signs & Weight: Vital Signs (12 hours) Temp Pulse Ox 10/23/19 11:44 99 10/23/19 11:43 97.2 F L Weight Weight 281 lb 8 oz Most Recent Monitor Data Heart Rate from ECG 81 NIBP 122/61 NIBP BP-Mean 81 Respiration from ECG 17 SpO2 100 I&O: 10/22/19 10/23/19 10/24/19 06:59 06:59 06:59 Intake Total 1930 1760 200 Output Total 2950 3305 588 Balance -1020 -1315 -388 Result Diagrams: 10/23/19 11:11 10/23/19 11:11 Additional Labs: Accuchecks 10/23/19 10/23/19 10/23/19 15:26 14:28 13:25 POC Glucose 148 H 158 H 149 H 10/23/19 10/23/19 10/23/19 12:34 11:22 10:22 POC Glucose 133 H 123 H 134 H 10/23/19 10/23/19 10/23/19 09:37 08:58 08:26 POC Glucose 173 H 178 H 144 H 10/23/19 10/22/19 10/22/19 05:36 21:04 17:38 POC Glucose 123 H 191 H 194 H Hospitalist ROS - Review of Systems Constitutional: denies: sweats ENT: denies: ear discharge, mouth pain Respiratory: denies: cough, dry - Medication Medications: Active Medications Generic Name Dose Route Start Last Admin Trade Name Freq PRN Reason Stop Dose Admin Albumin Human 25 gm 10/23/19 11:20 10/23/19 13:55 Albumin 5% IVPB 10/24/19 11:21 25 gm Q6H PRN Administration To Maintain SBP > 90 mmHG Fentanyl 50 mcg 10/23/19 11:20 10/23/19 13:37 Sublimaze SLOW IVP 10/25/19 10:38 50 mcg Q2H PRN Administration Severe Pain (7-10) Cefazolin Sodium/Dextrose 2 gm 50 mls @ 100 mls/hr 10/23/19 14:00 10/23/19 13 :20 / Device IVPB 10/24/19 06:29 50 mls Q8HR ABDOULAYE Administration Potassium Chloride/Dextrose/Sod Cl 1,000 mls @ 40 mls/hr 10/23/19 11:20 10/23 12:20 D5 1/2 Ns W/20 Meq Kcl IV 1,000 mls .Q24H ABDOULAYE Administration Norepinephrine Bitartrate 250 mls @ 0 mls/hr 10/23/19 11:20 10/23/19 14:15 Levophed IVPB 250 mls PRN PRN Administration To maintain SBP > 90 mmHG Protocol Titrate Ketorolac Tromethamine 30 mg 10/23/19 12:00 10/23/19 12:00 Toradol IVP 10/26/19 12:01 Not Given Q6HR ABDOULAYE Potassium Chloride 20 meq 10/23/19 11:20 10/23/19 14:15 Kcl IVPB 20 meq PRN PRN Administration K level </= 4.0 - Exam General Appearance: NAD, awake alert Eye: PERRL, anicteric sclera ENT: normocephalic atraumatic, no oropharyngeal lesions Neck: supple, no JVD Heart: RRR, no murmur, no gallops, no rubs Respiratory: CTAB, no wheezes, no rales, no ronchi Gastrointestinal: soft, non-tender, non-distended, normal bowel sounds Gastrointestinal - other findings: isaacs catheter in place Extremities: no cyanosis, no clubbing, no edema Skin: normal turgor, no lesions, no rashes Hosp A/P (1) S/P CABG x 2 Code(s): Z95.1 - PRESENCE OF AORTOCORONARY BYPASS GRAFT Status: Acute (2) Acute non-ST elevation myocardial infarction (NSTEMI) Code(s): I21.4 - NON-ST ELEVATION (NSTEMI) MYOCARDIAL INFARCTION Status: Acute (3) HTN (hypertension) Code(s): I10 - ESSENTIAL (PRIMARY) HYPERTENSION Status: Acute (4) Obesity (BMI 35.0-39.9 without comorbidity) Code(s): E66.9 - OBESITY, UNSPECIFIED Status: Chronic (5) Hypoglycemia due to insulin Code(s): E16.0 - DRUG-INDUCED HYPOGLYCEMIA WITHOUT COMA; T38.3X5A - ADVERSE EFFECT OF INSULIN AND ORAL HYPOGLYCEMIC DRUGS, INIT Status: Resolved - Plan Chest x ray: cardiomegaly This is 54 year old male who presented with hypoglycemia, tachycardia, presyncope, found to incidentally have NSTEMI, s/p CABG today #NSTEMI s/p CABG #Hypertension #Hyperlipidemia - s/p CABG with PERAZA to LAD and reverse saphenous vein to 3 mm DM1 - on aspirin 325 mg, statin and levofed - hydralazine prn for hypertension DM Type II - continue insulin drip, blood sugars controlled Dispo: ambulation, remove isaacs tomorrow when ambulatory, wean pressors Code status: full code
[2019-10-23 17:25] LABS: Hemoglobin 12.7 g/dL (14.0-18.0)
[2019-10-23 17:43] LABS: Potassium 4.5 mmol/L (3.5-5.1)
[2019-10-23] MEDS ORDERED: Atorvastatin Calcium 20 MG TAB PO SCH (21:00)
[2019-10-23] MEDS: Famotidine/PF 20 mg/2ml Vial SLOW IVP SCH (21:05)
[2019-10-24] MEDS: Ketorolac Tromethamine 30 MG/ML VIAL IVP SCH ×4 (00:08→18:26)
[2019-10-24 04:42] LABS: #Lymphocytes 2.1 thou/uL (1.20-3.40); #Monocytes 1.4 thou/uL (0.11-0.59); #Neutrophils 12.7 thou/uL (1.40-6.50); %Basophils 0.1 % (0.0-1.0); %Eosinophils 0.1 % (0.0-10.0); %Lymphocytes 13.2 % (21.0-51.0); %Monocytes 8.8 % (0.0-10.0); %Neutrophils 77.9 % (42.0-75.0); Hemoglobin 11.7 g/dL (14.0-18.0); Mean Corpuscular HGB CONC 34.2 g/dL (32.0-36.0); Mean Corpuscular Hemoglobin 32.6 pg (27.0-31.0); Mean Corpuscular Volume 95.4 fL (78.0-98.0); Mean Platelet Volume 8.5 fL (7.4-10.4); Platelet Count 222 thou/uL (130-400); RBC Distribution Width 11.7 % (11.5-14.5); Red Blood Cell (RBC) Count 3.59 mill/uL (4.70-6.10); White Blood Cell (WBC) Count 16.3 thou/uL (4.8-10.8)
[2019-10-24] MEDS: Fentanyl 100 MCG/2 ML VIAL SLOW IVP PRN (04:59)
[2019-10-24 05:04] LABS: Anion Gap 12 mmol/L (10-20); BUN (Urea Nitrogen) 11 mg/dL (8.4-25.7); Calc. Creatinine Clearance 184 mL/min (70-130); Calcium 7.7 mg/dL (7.8-10.44); Carbon Dioxide 22 mmol/L (22-29); Chloride 109 mmol/L (98-107); Estimated GFR-MDRD Greater than 90; Glucose 129 mg/dL (70-105); Potassium 4.5 mmol/L (3.5-5.1); Sodium 138 mmol/L (136-145)
[2019-10-24] MEDS: CEFAZOLIN 2 GM in Premix Bag 1 BAG IVPB SCH (06:07)
--- NOTE | 2019-10-24 07:11 | CON ---
DATE OF CONSULTATION: HISTORY OF PRESENT ILLNESS: This is a 54-year-old gentleman, status post CABG, in the ICU, who is extubated. Reason for consultation, ICU. The patient underwent a coronary artery bypass graft x2 today. Nonsmoker and nondrinker. is an RN, who gives excellent history. He states that he was here with chest pain only in September. Cardiac cath revealed significant coronary artery disease in the LAD. He works in [email or web address]. Some kind of management position. No prior history of TB, pneumonia, or bronchial asthma. PAST MEDICAL HISTORY: 1. Diabetes. 2. Hypertension. 3. Hypothyroidism. 4. Dyslipidemia. PAST SURGICAL HISTORY: 1. Knee surgery. 2. Hernia. states he is very healthy. He had a sleep study done, which is negative. HOME MEDICATIONS: Include; 1. Metformin 1000 twice a day. 2. Synthroid 150. 3. Tizanidine 4 mg t.i.d. 4. Insulin b.i.d. 5. Toprol 50. 6. Magnesium. 7. Zestril 10. 8. Pepcid 20. 9. Lipitor 40. 10. Aspirin. ALLERGIES: AZITHROMYCIN. REVIEW OF SYSTEMS: Ten-point negative. PHYSICAL EXAMINATION: VITAL SIGNS: In ICU, post extubation, sats are 100%, blood pressure 120/80, pulse , respiratory rate 18 . CHEST: Decreased breath sounds. No wheezing. CARDIAC: Normal S1, S2. No gallops. ABDOMEN: No masses. LABORATORY DATA: Lytes are normal. His lab shows white count 20,000, H and H 12 and 36, platelet count is normal. Chemistry shows normal BUN and creatinine, glucose 158. ASSESSMENT: Status post coronary artery bypass grafting x2, obesity, negative sleep study, nonsmoker, diabetes, hypothyroidism. PLAN: Continue present treatment. We will observe while in the ICU. Consultation note, 70 minutes, 50% direct patient care. Job ID: [id number]
[2019-10-24] MEDS ORDERED: Levothyroxine 150 MCG TAB PO SCH (07:45)
--- NOTE | 2019-10-24 07:46 | RAD ---
Portable upright frontal chest radiograph: 10/24/2019 COMPARISON: 10/23/2019 HISTORY: Evaluate chest following open heart surgery FINDINGS: Stable enlargement of the cardiac silhouette. A curved drainage catheter overlies the media stinum terminating over the upper left hemithorax. Midline sternotomy wires are present. Second drainage catheter overlies the midline mediastinum. Stable right vascular catheter. No focal consolid ation or alveolar edema. IMPRESSION: Postoperative changes as above.
[2019-10-24] MEDS: Famotidine/PF 20 mg/2ml Vial SLOW IVP SCH ×2 (08:36→21:13)
[2019-10-24] MEDS: Magnesium 2 GM/50 ML 2 GM in Premix Bag 1 BAG IVPB SCH (08:37)
[2019-10-24] MEDS: traMADol HCl 50 MG TAB PO PRN ×2 (08:46→16:10)
--- NOTE | 2019-10-24 08:46 | PDOC.CPN ---
- Subjective Date: 10/24/19 Time: 08:45 Interval history: The pt seen and examined. No overnight events. No cardiac complaints. He is up to chair this AM without any cardiac complaints. - Objective Allergies/Adverse Reactions: Allergies Allergy/AdvReac Type Severity Reaction Status Date / Time azithromycin Allergy Verified 10/15/19 17:41 Visit Medications: Current Medications Acetaminophen (Tylenol) 650 mg PO Q6H PRN PRN Reason: Headache/Fever Or Mild Pain Al Hydroxide/Mg Hydroxide (Maalox) 30 ml PO Q4H PRN PRN Reason: Indigestion Albumin Human (Albumin 5%) 12.5 gm IVPB Q6H PRN PRN Reason: To Maintain SBP> 90 mmHG Stop: 10/24/19 11:21 Albumin Human (Albumin 5%) 25 gm IVPB Q6H PRN PRN Reason: To Maintain SBP > 90 mmHG Stop: 10/24/19 11:21 Last Admin: 10/24/19 03:03 Dose: 25 gm Albuterol/Ipratropium (Duoneb) 3 ml NEB [id number] PRN PRN Reason: SHORTNESS OF BREATH Aspirin (Aspirin) 325 mg PO DAILY [facility] Last Admin: 10/24/19 08:36 Dose: 325 mg Atorvastatin Calcium (Lipitor) 40 mg PO HS ABDOULAYE Bisacodyl (Dulcolax) 10 mg PO Q12H PRN PRN Reason: Constipation Bisacodyl (Dulcolax) 10 mg MT Q12H PRN PRN Reason: Constipation Dextrose/Water (Dextrose 50%) 25 gm SLOW IVP PRN PRN PRN Reason: PER HYPOGLYCEMIC PROTOCOL Famotidine (Pepcid) 20 mg SLOW IVP Q12HR [facility] Last Admin: 10/24/19 08:36 Dose: 20 mg Fentanyl (Sublimaze) 25 mcg SLOW IVP Q2H PRN PRN Reason: Moderate Pain (4-6) Stop: 10/25/19 10:38 Fentanyl (Sublimaze) 50 mcg SLOW IVP Q2H PRN PRN Reason: Severe Pain (7-10) Stop: 10/25/19 10:38 Last Admin: 10/24/19 04:59 Dose: 50 mcg Glucagon (Glucagon) 1 mg SC PRN PRN PRN Reason: PER HYPOGLYCEMIC PROTOCOL Guaifenesin/Dextromethorphan (Robitussin Dm) 15 ml PO Q4H PRN PRN Reason: Cough Hydralazine HCl (Apresoline) 10 mg SLOW IVP Q6H PRN PRN Reason: To Maintain SBP< 140mmHG Magnesium Sulfate 2 gm/ Device 50 mls @ 50 mls/hr IVPB QAM [facility] Stop: 10/25/19 09:59 Last Admin: 10/24/19 08:37 Dose: 50 mls Dextrose/Water (D5w) 1,000 mls @ 0 mls/hr IV INF PRN PRN Reason: PRN HYPOGLYCEMIC PROTOCOL Insulin Glargine (Lantus) 0 units SC ONE PRN PRN Reason: PER OPEN HEART ORDERS Stop: 10/24/19 17:00 Insulin Human Lispro (Humalog) 0 units SC .MODERATE SLIDING SC PRN; Protocol PRN Reason: MODERATE SLIDING SCALE Ketorolac Tromethamine (Toradol) 30 mg IVP Q6HR [facility] Stop: 10/26/19 12:01 Last Admin: 10/24/19 06:07 Dose: 30 mg Levothyroxine Sodium (Synthroid) 150 mcg PO 0600 [facility] Levothyroxine Sodium (Synthroid) 150 mcg PO NOW [facility] Stop: 10/24/19 09:45 Last Admin: 10/24/19 08:36 Dose: 150 mcg Morphine Sulfate (Morphine) 2 mg SLOW IVP Q15MIN PRN PRN Reason: Severe Pain (7-10) Ondansetron HCl (Zofran) 4 mg IVP Q6H PRN PRN Reason: Nausea/Vomiting Potassium Chloride (Kcl) 20 meq IVPB PRN PRN PRN Reason: K level </= 4.0 Last Admin: 10/23/19 14:15 Dose: 20 meq Sodium Chloride (Flush - Normal Saline) 10 ml IVF PRN PRN PRN Reason: Saline Flush Tramadol HCl (Ultram) 50 mg PO Q4H PRN PRN Reason: Pain Vital Signs & Weight: Vital Signs Temp 10/24/19 08:00 98.4 F Weight 281 lb 8 oz - Physical Exam General: alert & oriented x3 HEENT: mucus membranes moist Neck: supple neck Cardiac: regular rate and rhythm, S1/S2 Lungs: clear to auscultation Neuro: cranial nerve 2-12 intact - Labs Result Diagrams: 10/24/19 04:15 10/24/19 04:15 Troponin/CKMB Troponin I 0.095 ng/mL (< 0.028) H 10/17/19 04:44 - Telemetry Sinus rhythms and dysrhythmias: sinus rhythm - Assessment/Plan Assessment/Plan: 1. CAD with s/p CABG x2 on 10/23/2019 with PERAZA-> LAD and SVG-> diag. - stable; on ASA and statin; not on BBlocker or RALPH/ARB due to hypotesive 2. HTN - will resume bblocker and RALPH/ARB with more stable VS 3. HLD - on Statin 4. DM type 2 - Isulin drip 5. Hypokalemia - resolved 6. Hypomagnesemia - resolved 7. Obese MAR reviewed Pt. seen and eval. by me. I agree with the a/p by the SENIOR MEDICAL BILLING SPECIALIST. Chest clear. RRR. No edema. Up in chair. Chest tubes still in. Likely remove today and transfer to tele. Doing well s/p CABG.
--- NOTE | 2019-10-24 08:59 | PRG ---
DATE OF SERVICE: 10/24/2019 SUBJECTIVE: A 54-year-old gentleman status post CABG. This morning, he is better, less pain, less shortness of breath. OBJECTIVE: VITAL SIGNS: Temperature 98, blood pressure is 99/77, pulse 80, respiratory rate 18, saturation 97%. CHEST: Decreased breath sounds. No wheezing. CARDIAC: Normal S1, S2. No gallop. ABDOMEN: No masses. LABORATORY DATA: White count [id number]. Electrolytes are normal. His chest x-ray shows no acute infiltrates, status post CABG. ASSESSMENT: Baseline diabetes, hypertension. PLAN: Continue present aggressive PT, supportive care, we will follow while in the ICU. Job ID: [id number]
[2019-10-24] MEDS ORDERED: Aspirin 325 MG TAB PO SCH (09:00)
--- NOTE | 2019-10-24 11:08 | EKG ---
Test Reason : POST CABG Blood Pressure : / mmHG Vent. Rate : 074 BPM Atrial Rate : 074 BPM P-R Int : 186 ms QRS Dur : 094 ms QT Int : 400 ms P-R-T Axes : -25 053 013 degrees QTc Int : 444 ms Normal sinus rhythm Normal ECG When compared with ECG of 15-OCT-2019 10:04, (Unconfirmed) ST elevation now present in Inferior leads ST no longer depressed in Lateral leads Confirmed by DR. Lobito BOYD ([id number]) on 10/24/2019 11:07:49 AM Referred By: Joann WARD Confirmed By:DR. Lobito BOYD
[2019-10-24] MEDS: HumaLOG 300 UNITS/3 ML VIAL SC PRN ×2 (11:29→16:11)
--- NOTE | 2019-10-24 18:25 | PDOC.HOSPP ---
- Subjective Encounter Date: 10/24/19 Encounter Time: 17:00 Subjective: The patient is doing better. FEels mild chest pressure on his chest. His tubes were removed from his chest. Isaacs still in place. He is anxious to get out of bed and be ambulating soon. No cough, fevers, or chills. - Objective Vital Signs & Weight: Vital Signs (12 hours) Temp Pulse Ox 10/24/19 16:00 98.3 F 10/24/19 12:00 98.3 F 10/24/19 08:00 98.4 F 98 Weight Weight 299 lb 9.731 oz Most Recent Monitor Data Heart Rate from ECG 74 NIBP 113/64 NIBP BP-Mean 80 Respiration from ECG 10 SpO2 96 I&O: 10/23/19 10/24/19 10/25/19 06:59 06:59 06:59 Intake Total 1760 1739.3 1903 Output Total 3075 1733 775 Balance -1315 6.3 1128 Result Diagrams: 10/24/19 04:15 10/24/19 04:15 Additional Labs: Accuchecks 10/24/19 10/24/19 10/24/19 16:07 11:02 07:23 POC Glucose 222 H 207 H 124 H 10/24/19 10/24/19 10/24/19 06:13 05:09 04:02 POC Glucose 124 H 120 H 127 H 10/24/19 10/24/19 10/24/19 03:05 02:04 01:04 POC Glucose 151 H 119 H 107 10/24/19 10/23/19 10/23/19 00:06 23:11 22:04 POC Glucose 120 H 128 H 115 H 10/23/19 10/23/19 10/23/19 20:29 20:05 19:24 POC Glucose 105 102 116 H Hospitalist ROS - Review of Systems Eyes: denies: vision change Genitourinary: denies: dysuria - Medication Medications: Active Medications Generic Name Dose Route Start Last Admin Trade Name Freq PRN Reason Stop Dose Admin Aspirin 325 mg 10/24/19 09:00 10/24/19 08:36 Aspirin PO 325 mg DAILY ABDOULAYE Administration Famotidine 20 mg 10/23/19 21:00 10/24/19 08:36 Pepcid SLOW IVP 20 mg Q12HR ABDOULAYE Administration Fentanyl 50 mcg 10/23/19 11:20 10/24/19 04:59 Sublimaze SLOW IVP 10/25/19 10:38 50 mcg Q2H PRN Administration Severe Pain (7-10) Magnesium Sulfate 2 gm/ Device 50 mls @ 50 mls/hr 10/24/19 09:00 10/24/19 08: 37 IVPB 10/25/19 09:59 50 mls QAM ABDOULAYE Administration Insulin Human Lispro 0 units 10/24/19 08:26 10/24/19 16:11 Humalog SC 4 unit .MODERATE SLIDING SC PRN Administration MODERATE SLIDING SCALE Protocol Ketorolac Tromethamine 30 mg 10/23/19 12:00 10/24/19 11:27 Toradol IVP 10/26/19 12:01 30 mg Q6HR ABDOULAYE Administration Potassium Chloride 20 meq 10/23/19 11:20 10/23/19 14:15 Kcl IVPB 20 meq PRN PRN Administration K level </= 4.0 Tramadol HCl 50 mg 10/23/19 11:20 10/24/19 16:10 Ultram PO 50 mg Q4H PRN Administration Pain - Exam General Appearance: NAD, awake alert Eye: PERRL, anicteric sclera ENT: normocephalic atraumatic, no oropharyngeal lesions Neck: supple, no JVD, no thyromegaly Heart: RRR, no murmur, no gallops, no rubs Respiratory: CTAB, no wheezes, no rales, no ronchi Gastrointestinal: soft, non-tender, non-distended Gastrointestinal - other findings: isaacs in place with hematuria Extremities: no cyanosis, no clubbing, no edema, clubbing Skin: normal turgor, no lesions, no rashes Neurological: cranial nerve grossly intact, normal sensation to touch, no focal deficits, no new deficit Hosp A/P (1) S/P CABG x 2 Code(s): Z95.1 - PRESENCE OF AORTOCORONARY BYPASS GRAFT Status: Acute (2) Acute non-ST elevation myocardial infarction (NSTEMI) Code(s): I21.4 - NON-ST ELEVATION (NSTEMI) MYOCARDIAL INFARCTION Status: Acute (3) HTN (hypertension) Code(s): I10 - ESSENTIAL (PRIMARY) HYPERTENSION Status: Acute (4) Obesity (BMI 35.0-39.9 without comorbidity) Code(s): E66.9 - OBESITY, UNSPECIFIED Status: Chronic (5) Hypoglycemia due to insulin Code(s): E16.0 - DRUG-INDUCED HYPOGLYCEMIA WITHOUT COMA; T38.3X5A - ADVERSE EFFECT OF INSULIN AND ORAL HYPOGLYCEMIC DRUGS, INIT Status: Resolved - Plan Chest x ray: cardiomegaly. NO edema or consolidation This is 54 year old male who presented with hypoglycemia, tachycardia, presyncope, found to incidentally have NSTEMI, s/p CABG today #NSTEMI s/p CABG #Hypertension #Hyperlipidemia - s/p CABG with PERAZA to LAD and reverse saphenous vein to 3 mm DM1 POD1 - on aspirin 325 mg, statin and levofed - hydralazine prn for hypertension - on cefazolin for prophylaxis post surgery DM Type II - on insulin drip, blood sugars controlled Dispo: ambulation, remove isaacs tomorrow when ambulatory, wean pressors Code status: full code
[2019-10-24] MEDS: Atorvastatin Calcium 40 MG TAB PO SCH (21:12)
[2019-10-25] MEDS: Ketorolac Tromethamine 30 MG/ML VIAL IVP SCH ×5 (00:05→23:34)
[2019-10-25 04:20] LABS: #Basophils 0.1 thou/uL (0.0-0.2); #Eosinphils 0.1 thou/uL (0.0-0.7); #Lymphocytes 3.5 thou/uL (1.20-3.40); #Monocytes 1.3 thou/uL (0.11-0.59); #Neutrophils 8.5 thou/uL (1.40-6.50); %Basophils 0.7 % (0.0-1.0); %Eosinophils 0.8 % (0.0-10.0); %Lymphocytes 26.3 % (21.0-51.0); %Monocytes 9.6 % (0.0-10.0); %Neutrophils 62.7 % (42.0-75.0); Hemoglobin 11.4 g/dL (14.0-18.0); Mean Corpuscular HGB CONC 33.8 g/dL (32.0-36.0); Mean Corpuscular Hemoglobin 32.5 pg (27.0-31.0); Platelet Count 198 thou/uL (130-400); RBC Distribution Width 11.9 % (11.5-14.5); White Blood Cell (WBC) Count 13.5 thou/uL (4.8-10.8)
[2019-10-25 04:41] LABS: Anion Gap 10 mmol/L (10-20); BUN (Urea Nitrogen) 12 mg/dL (8.4-25.7); Calc. Creatinine Clearance 176 mL/min (70-130); Carbon Dioxide 26 mmol/L (22-29); Cardiac Risk 3.4 (Less than 4.5); Chloride 103 mmol/L (98-107); Cholesterol 68 mg/dl (< 200 Desired); Estimated GFR-MDRD 86; Glucose 216 mg/dL (70-105); HDL Cholesterol 20 mg/dL (>60 Neg Risk); LDL Cholesterol, Calculated 24 mg/dL; Potassium 4.5 mmol/L (3.5-5.1); Sodium 134 mmol/L (136-145); Triglycerides 121 mg/dL (Less than 150)
[2019-10-25] MEDS: Levothyroxine 150 MCG TAB PO SCH (05:19)
[2019-10-25] MEDS: HumaLOG 300 UNITS/3 ML VIAL SC PRN (07:21)
[2019-10-25] MEDS ORDERED: Bisacodyl 10 MG SUPP PR PRN (08:00)
[2019-10-25] MEDS ORDERED: Guaifenesin DM 100-10/5 ML UDCUP PO PRN (08:00)
[2019-10-25] MEDS ORDERED: Mag-Al 1200 mg/1200 mg/30 ML UDCUP PO PRN (08:00)
[2019-10-25] MEDS ORDERED: Nitroglycerin 0.4 MG TAB (25 Tab Bottle) SL PRN (08:00)
[2019-10-25] MEDS ORDERED: Furosemide 40 MG/4 ML VIAL SLOW IVP SCH (08:00)
[2019-10-25] MEDS ORDERED: diphenhydrAMINE 25 MG CAP PO PRN (08:00)
[2019-10-25] MEDS ORDERED: Zolpidem Tartrate 5 MG TAB PO PRN (08:00)
[2019-10-25] MEDS ORDERED: Artificial Tears 18 DROP/0.9 ML EA EYE PRN (08:00)
[2019-10-25] MEDS ORDERED: Mineral Oil ENEMA PR PRN (08:00)
[2019-10-25] MEDS ORDERED: Bisacodyl 5 MG TAB PO PRN (08:00)
--- NOTE | 2019-10-25 08:23 | PDOC.CPN ---
- Subjective Date: 10/25/19 Time: 10:00 Interval history: The pt seen and examined. No overnight events. No cardiac complaints. - Objective Allergies/Adverse Reactions: Allergies Allergy/AdvReac Type Severity Reaction Status Date / Time azithromycin Allergy Verified 10/15/19 17:41 Visit Medications: Current Medications Acetaminophen (Tylenol) 650 mg PO Q6H PRN PRN Reason: Headache/Fever Or Mild Pain Al Hydroxide/Mg Hydroxide (Maalox) 30 ml PO Q4H PRN PRN Reason: Indigestion Al Hydroxide/Mg Hydroxide (Maalox) 30 ml PO Q4H PRN PRN Reason: Indigestion Albuterol/Ipratropium (Duoneb) 3 ml NEB [id number] PRN PRN Reason: SHORTNESS OF BREATH Artificial Tears (Tears Naturale) 0 drop EA EYE PRN PRN PRN Reason: Dry Eyes Aspirin (Aspirin) 325 mg PO DAILY [facility] Last Admin: 10/24/19 08:36 Dose: 325 mg Aspirin (Ecotrin) 325 mg PO DAILY [facility] Atorvastatin Calcium (Lipitor) 40 mg PO HS [facility] Last Admin: 10/24/19 21:12 Dose: 40 mg Bisacodyl (Dulcolax) 10 mg PO Q12H PRN PRN Reason: Constipation Bisacodyl (Dulcolax) 10 mg W[place] Q12H PRN PRN Reason: Constipation Bisacodyl (Dulcolax) 10 mg PO Q12H PRN PRN Reason: Constipation Bisacodyl (Dulcolax) 10 mg W[place] Q12H PRN PRN Reason: Constipation Dextrose/Water (Dextrose 50%) 25 gm SLOW IVP PRN PRN PRN Reason: PER HYPOGLYCEMIC PROTOCOL Diphenhydramine HCl (Benadryl) 25 mg PO Q6H PRN PRN Reason: Itching & Insomnia or Jarvis Juwan Famotidine (Pepcid) 20 mg SLOW IVP Q12HR [facility] Last Admin: 10/24/19 21:13 Dose: 20 mg Fentanyl (Sublimaze) 25 mcg SLOW IVP Q2H PRN PRN Reason: Moderate Pain (4-6) Stop: 10/25/19 10:38 Fentanyl (Sublimaze) 50 mcg SLOW IVP Q2H PRN PRN Reason: Severe Pain (7-10) Stop: 10/25/19 10:38 Last Admin: 10/24/19 04:59 Dose: 50 mcg Furosemide (Lasix) 40 mg SLOW IVP ONE [facility] Glucagon (Glucagon) 1 mg SC PRN PRN PRN Reason: PER HYPOGLYCEMIC PROTOCOL Guaifenesin/Dextromethorphan (Robitussin Dm) 15 ml PO Q4H PRN PRN Reason: Cough Guaifenesin/Dextromethorphan (Robitussin Dm) 15 ml PO Q4H PRN PRN Reason: Cough Hydralazine HCl (Apresoline) 10 mg SLOW IVP Q6H PRN PRN Reason: To Maintain SBP< 140mmHG Magnesium Sulfate 2 gm/ Device 50 mls @ 50 mls/hr IVPB QAM [facility] Stop: 10/25/19 09:59 Last Admin: 10/24/19 08:37 Dose: 50 mls Dextrose/Water (D5w) 1,000 mls @ 0 mls/hr IV INF PRN PRN Reason: PRN HYPOGLYCEMIC PROTOCOL Insulin Human Lispro (Humalog) 0 units SC .MODERATE SLIDING SC PRN; Protocol PRN Reason: MODERATE SLIDING SCALE Last Admin: 10/25/19 07:21 Dose: 4 unit Ketorolac Tromethamine (Toradol) 30 mg IVP Q6HR [facility] Stop: 10/26/19 12:01 Last Admin: 10/25/19 05:19 Dose: 30 mg Levothyroxine Sodium (Synthroid) 150 mcg PO 0600 [facility] Last Admin: 10/25/19 05:19 Dose: 150 mcg Metoprolol Tartrate (Lopressor) 25 mg PO BID [facility] Mineral Oil (Fleet Mineral Oil) 133 ml [place] DAILYPRN PRN PRN Reason: Constipation Miscellaneous Medication (Post-Op Sliding Scale) 1 each FS ONE ONE Stop: 10/25/19 08:01 Morphine Sulfate (Morphine) 2 mg SLOW IVP Q15MIN PRN PRN Reason: Severe Pain (7-10) Nitroglycerin (Nitrostat) 0.4 mg SL Q5MIN PRN PRN Reason: Chest Pain Ondansetron HCl (Zofran) 4 mg IVP Q6H PRN PRN Reason: Nausea/Vomiting Potassium Chloride (Kcl) 20 meq IVPB PRN PRN PRN Reason: K level </= 4.0 Last Admin: 10/23/19 14:15 Dose: 20 meq Sodium Chloride (Flush - Normal Saline) 10 ml IVF PRN PRN PRN Reason: Saline Flush Tramadol HCl (Ultram) 50 mg PO Q4H PRN PRN Reason: Pain Last Admin: 10/24/19 16:10 Dose: 50 mg Zolpidem Tartrate (Ambien) 5 mg PO HSPRN PRN PRN Reason: Insomnia Vital Signs & Weight: Vital Signs Temp Pulse Ox 10/25/19 08:00 99.2 F 94 L 10/24/19 22:00 99.7 F H Weight 196 lb 6.4 oz - Physical Exam General: alert & oriented x3 HEENT: mucus membranes moist Neck: supple neck Cardiac: regular rate and rhythm, S1/S2 Lungs: clear to auscultation - Labs Result Diagrams: 10/25/19 04:10 10/25/19 04:10 Troponin/CKMB Troponin I 0.095 ng/mL (< 0.028) H 10/17/19 04:44 - Telemetry Sinus rhythms and dysrhythmias: sinus rhythm - Assessment/Plan Assessment/Plan: 1. CAD with s/p CABG x2 on 10/23/2019 with PERAZA-> LAD and SVG-> diag. - stable; on ASA and statin; Metoprolol 25mg is started from this AM; Lasix IV x1 this AM ; 2. HTN - Metoprolol 25mg is started from this AM 3. HLD - on Statin 4. DM type 2 - on SS 5. Hypokalemia - stable 6. Hypomagnesemia - stabe 7. Obese MAR reviewed Pt. seen and eval. by me. I agree wkith the A/P by the RECORDS MANAGEMENT ASSOCIATE. Doing well post CABG. Some edema but diuresing well after lasix. Chest clear. RRR. Mild edema of left arm and left leg. gjm
[2019-10-25] MEDS ORDERED: Dextrose 50% Abboject 50 ML SYRINGE SLOW IVP PRN (08:31)
[2019-10-25] MEDS ORDERED: Dextrose 5% in Water 1,000 ML IV PRN (08:31)
[2019-10-25] MEDS: Metoprolol Tartrate 25 MG TAB PO SCH ×2 (08:43→20:13)
[2019-10-25] MEDS: Aspirin 325 mg Enteric Coated Tablet PO SCH (08:43)
[2019-10-25] MEDS: Famotidine 20 MG TAB PO SCH ×2 (08:43→20:13)
[2019-10-25] MEDS: Magnesium 2 GM/50 ML 2 GM in Premix Bag 1 BAG IVPB SCH (08:43)
--- NOTE | 2019-10-25 08:50 | RAD ---
CHEST ONE VIEW: HISTORY: Open heart surgery. COMPARISON: Radiograph from the prior day. FINDINGS: Central venous catheter tip projects over the right atrium. Heart size is enlarged. No pneumothorax. Multiple midline sternotomy wires. Mild atelectasis in the lung bases. IMPRESSION: No significant change in the radiographic appearance of the chest. POS: CET
[2019-10-25] MEDS ORDERED: Loratadine 10 MG TAB PO PRN (08:59)
[2019-10-25] MEDS: Insulin Regular 300 UNITS/3 ML VIAL SC PRN ×3 (11:32→22:03)
--- NOTE | 2019-10-25 19:09 | PDOC.HOSPP ---
- Subjective Encounter Date: 10/25/19 Encounter Time: 19:07 Subjective: patient is doing better . he has no chest pain or shortness of breath. he was transferred to the floor. Danielson was removed . He has some mild chest soreness. He ambulated with PT today - Objective Vital Signs & Weight: Vital Signs (12 hours) Temp Pulse Pulse Pulse Resp BP BP 10/25/19 16:00 98.2 F 82 16 10/25/19 14:18 99.0 F 87 17 10/25/19 13:32 89 86 151/73 H 148/80 H 10/25/19 12:00 98.8 F 10/25/19 09:45 89 99 144/72 H 154/76 H 10/25/19 08:00 99.2 F BP Pulse Ox Pulse Ox Pulse Ox 10/25/19 16:00 149/68 H 92 L 10/25/19 14:18 152/67 H 92 L 10/25/19 13:32 97 10/25/19 12:00 10/25/19 09:45 96 99 10/25/19 08:00 94 L Weight Weight 196 lb 6.4 oz Most Recent Monitor Data Heart Rate from ECG 83 NIBP 117/64 NIBP BP-Mean 81 Respiration from ECG 14 SpO2 95 I&O: 10/24/19 10/25/19 10/26/19 06:59 06:59 06:59 Intake Total 1739.3 2143 1000 Output Total 1733 2190 3025 Balance 6.3 -47 -2024 Result Diagrams: 10/25/19 04:10 10/25/19 04:10 Additional Labs: Accuchecks 10/25/19 10/25/19 10/25/19 16:46 11:29 07:24 POC Glucose 276 H 243 H 206 H 10/25/19 10/24/19 10/23/19 04:15 21:14 10:50 POC Glucose 216 H 197 H 121 H Hospitalist ROS - Review of Systems Cardiovascular: reports: edema. denies: chest pain, palpitations, orthopnea, paroxysmal noc. dyspnea, light headedness, other - Medication Medications: Active Medications Generic Name Dose Route Start Last Admin Trade Name Freq PRN Reason Stop Dose Admin Aspirin 325 mg 10/25/19 09:00 10/25/19 08:43 Ecotrin PO 325 mg DAILY ABDOULAYE Administration Atorvastatin Calcium 40 mg 10/24/19 21:00 10/24/19 21:12 Lipitor PO 40 mg HS ABDOULAYE Administration Famotidine 20 mg 10/25/19 09:00 10/25/19 08:43 Pepcid PO 20 mg Q12HR ABDOULAYE Administration Insulin Human Regular 0 units 10/25/19 08:31 10/25/19 17:47 Humulin R SC 8 unit Q4H PRN Administration POST OP SLIDING SCALE Protocol Ketorolac Tromethamine 30 mg 10/23/19 12:00 10/25/19 17:45 Toradol IVP 10/26/19 12:01 30 mg Q6HR ABDOULAYE Administration Levothyroxine Sodium 150 mcg 10/25/19 06:00 10/25/19 05:19 Synthroid PO 150 mcg 0600 ABDOULAYE Administration Loratadine 10 mg 10/25/19 08:59 10/25/19 17:59 Claritin PO 10 mg DAILYPRN PRN Administration Allergies Metoprolol Tartrate 25 mg 10/25/19 09:00 10/25/19 08:43 Lopressor PO 25 mg BID ABDOULAYE Administration Potassium Chloride 20 meq 10/23/19 11:20 10/23/19 14:15 Kcl IVPB 20 meq PRN PRN Administration K level </= 4.0 Tramadol HCl 50 mg 10/23/19 11:20 10/24/19 16:10 Ultram PO 50 mg Q4H PRN Administration Pain - Exam General Appearance: NAD, awake alert Eye: anicteric sclera Heart: RRR, no murmur, no gallops Respiratory: CTAB, no wheezes, no rales Skin: normal turgor, no lesions, no rashes Hosp A/P (1) S/P CABG x 2 Code(s): Z95.1 - PRESENCE OF AORTOCORONARY BYPASS GRAFT Status: Acute (2) Acute non-ST elevation myocardial infarction (NSTEMI) Code(s): I21.4 - NON-ST ELEVATION (NSTEMI) MYOCARDIAL INFARCTION Status: Acute (3) HTN (hypertension) Code(s): I10 - ESSENTIAL (PRIMARY) HYPERTENSION Status: Acute (4) Obesity (BMI 35.0-39.9 without comorbidity) Code(s): E66.9 - OBESITY, UNSPECIFIED Status: Chronic (5) Hypoglycemia due to insulin Code(s): E16.0 - DRUG-INDUCED HYPOGLYCEMIA WITHOUT COMA; T38.3X5A - ADVERSE EFFECT OF INSULIN AND ORAL HYPOGLYCEMIC DRUGS, INIT Status: Resolved - Plan Chest x ray: cardiomegaly. NO edema or consolidation This is 54 year old male who presented with hypoglycemia, tachycardia, presyncope, found to incidentally have NSTEMI, s/p CABG today #NSTEMI s/p CABG #Hypertension #Hyperlipidemia - s/p CABG with PERAZA to LAD and reverse saphenous vein to 3 mm DM1 POD1 - on aspirin 325 mg, statin - hydralazine prn for hypertension . Beta kayla and RALPH when blood pressure better - on cefazolin for prophylaxis post surgery DM Type II -place on sliding scale, blood sugars controlled Dispo: ambulation, possibly dc tomorrow Code status: full code
[2019-10-25] MEDS: traMADol HCl 50 MG TAB PO PRN (20:12)
[2019-10-25] MEDS: Atorvastatin Calcium 40 MG TAB PO SCH (20:13)
[2019-10-25] MEDS: Acetaminophen 325 MG TAB PO PRN (22:11)
[2019-10-26] MEDS: Levothyroxine 150 MCG TAB PO SCH (05:09)
[2019-10-26] MEDS: Ketorolac Tromethamine 30 MG/ML VIAL IVP SCH ×2 (05:09→11:12)
[2019-10-26] MEDS: Aspirin 325 mg Enteric Coated Tablet PO SCH (08:04)
[2019-10-26] MEDS: traMADol HCl 50 MG TAB PO PRN (08:05)
[2019-10-26] MEDS: Famotidine 20 MG TAB PO SCH (08:06)
[2019-10-26] MEDS: Insulin Regular 300 UNITS/3 ML VIAL SC PRN ×2 (08:08→11:33)
[2019-10-26] MEDS ORDERED: Metoprolol Tartrate 25 MG TAB PO SCH (09:00)
[2019-10-26] MEDS ORDERED: Insulin Glargine 40 UNITS in Pre-Filled Syringe 1 EACH SC SCH ×2 (09:00→21:00)
[2019-10-26] MEDS: Acetaminophen 325 MG TAB PO PRN (11:13)
[2019-10-26 11:36] VITALS: TEMP 98.5
[2019-10-26 13:03] VITALS: BMI 40.0
--- NOTE | 2019-10-26 14:33 | PDOC.CPN ---
- Subjective Date: 10/26/19 Time: 14:34 Interval history: The pt seen and examined. No overnight events. No cardiac complaints. - Objective Allergies/Adverse Reactions: Allergies Allergy/AdvReac Type Severity Reaction Status Date / Time azithromycin Allergy Verified 10/15/19 17:41 Visit Medications: Current Medications Acetaminophen (Tylenol) 650 mg PO Q6H PRN PRN Reason: Headache/Fever Or Mild Pain Last Admin: 10/26/19 11:13 Dose: 650 mg Al Hydroxide/Mg Hydroxide (Maalox) 30 ml PO Q4H PRN PRN Reason: Indigestion Albuterol/Ipratropium (Duoneb) 3 ml NEB [id number]-VV PRN PRN Reason: SHORTNESS OF BREATH Artificial Tears (Tears Naturale) 1 drop EA EYE PRN PRN PRN Reason: Dry Eyes Aspirin (Ecotrin) 325 mg PO DAILY [facility] Last Admin: 10/26/19 08:04 Dose: 325 mg Atorvastatin Calcium (Lipitor) 40 mg PO HS [facility] Last Admin: 10/25/19 20:13 Dose: 40 mg Bisacodyl (Dulcolax) 10 mg PO Q12H PRN PRN Reason: Constipation Last Admin: 10/26/19 08:05 Dose: 10 mg Bisacodyl (Dulcolax) 10 mg CA Q12H PRN PRN Reason: Constipation Dextrose/Water (Dextrose 50%) 25 gm SLOW IVP PRN PRN PRN Reason: PER HYPOGLYCEMIC PROTOCOL Diphenhydramine HCl (Benadryl) 25 mg PO Q6H PRN PRN Reason: Itching & Insomnia or Jarvis Juwan Famotidine (Pepcid) 20 mg PO Q12HR [facility] Last Admin: 10/26/19 08:06 Dose: 20 mg Glucagon (Glucagon) 1 mg SC PRN PRN PRN Reason: PER HYPOGLYCEMIC PROTOCOL Guaifenesin/Dextromethorphan (Robitussin Dm) 15 ml PO Q4H PRN PRN Reason: Cough Hydralazine HCl (Apresoline) 10 mg SLOW IVP Q6H PRN PRN Reason: To Maintain SBP< 140mmHG Dextrose/Water (D5w) 1,000 mls @ 0 mls/hr IV INF PRN PRN Reason: PRN HYPOGLYCEMIC PROTOCOL Insulin Glargine 40 units/ (Miscellaneous Medication) 0.4 mls @ 0 mls/hr SC HS [facility] Insulin Glargine 40 units/ (Miscellaneous Medication) 0.4 mls @ 0 mls/hr SC QAM [facility] Last Admin: 10/26/19 08:07 Dose: 0.4 mls Insulin Human Regular (Humulin R) 0 units SC Q4H PRN; Protocol PRN Reason: POST OP SLIDING SCALE Last Admin: 10/26/19 11:33 Dose: 6 unit Levothyroxine Sodium (Synthroid) 150 mcg PO 0600 [facility] Last Admin: 10/26/19 05:09 Dose: 150 mcg Lisinopril (Zestril) 10 mg PO DAILY ABDOULAYE Loratadine (Claritin) 10 mg PO DAILYPRN PRN PRN Reason: Allergies Last Admin: 10/25/19 17:59 Dose: 10 mg Metoprolol Tartrate (Lopressor) 50 mg PO BID [facility] Last Admin: 10/26/19 08:06 Dose: 50 mg Mineral Oil (Fleet Mineral Oil) 133 ml CA DAILYPRN PRN PRN Reason: Constipation Morphine Sulfate (Morphine) 2 mg SLOW IVP Q15MIN PRN PRN Reason: Severe Pain (7-10) Nitroglycerin (Nitrostat) 0.4 mg SL Q5MIN PRN PRN Reason: Chest Pain Ondansetron HCl (Zofran) 4 mg IVP Q6H PRN PRN Reason: Nausea/Vomiting Potassium Chloride (Kcl) 20 meq IVPB PRN PRN PRN Reason: K level </= 4.0 Last Admin: 10/23/19 14:15 Dose: 20 meq Sodium Chloride (Flush - Normal Saline) 10 ml IVF PRN PRN PRN Reason: Saline Flush Tramadol HCl (Ultram) 50 mg PO Q4H PRN PRN Reason: Pain Last Admin: 10/26/19 08:05 Dose: 50 mg Zolpidem Tartrate (Ambien) 5 mg PO HSPRN PRN PRN Reason: Insomnia Vital Signs & Weight: Vital Signs Temp Pulse Resp BP BP Pulse Ox 10/26/19 11:35 98.5 F 10/26/19 11:05 100.1 F H 81 18 145/69 H 95 10/26/19 07:01 98.8 F 85 18 146/71 H 98 10/26/19 04:23 98.5 F 75 18 137/75 92 L 10/26/19 03:06 98.1 F 74 20 130/72 95 Admit Weight 293 lb Weight 295 lb 1.6 oz - Physical Exam General: alert & oriented x3 HEENT: mucus membranes moist Neck: supple neck Cardiac: regular rate and rhythm, S1/S2 Lungs: clear to auscultation Neuro: cranial nerve 2-12 intact Extremities: no edema - Labs Result Diagrams: 10/25/19 04:10 10/25/19 04:10 Troponin/CKMB Troponin I 0.095 ng/mL (< 0.028) H 10/17/19 04:44 - Telemetry Sinus rhythms and dysrhythmias: sinus rhythm - Assessment/Plan Assessment/Plan: 1. CAD with s/p CABG x2 on 10/23/2019 with PERAZA-> LAD and SVG-> diag. - stable; on ASA and statin; Metoprolol 25mg is started from this AM; Lasix IV x1 this AM ; 2. HTN - stable 3. HLD - on Statin 4. DM type 2 - on SS 5. Hypokalemia - stable 6. Hypomagnesemia - stabe 7. Obese MAR reviewed * from Cardiac standpoint, the pt is stable to be d/suha home. The pt will f/u with Dr rogers' office within 2-4 wks. Pt. seen and eval. by me.I agree with the A/P by the GRIT REMOVAL OPERATOR. the BP is slightly increased. resume lisinopril. okay for d/c today. F/U with me in 1 month.
[2019-10-26 14:44] VITALS: BP 169/73
--- NOTE | 2019-10-26 18:07 | DIS ---
DATE OF ADMISSION: 10/15/2019 DATE OF DISCHARGE: 10/26/2019 BRIEF HISTORY OF PRESENT ILLNESS: This is a 54-year-old male with a past medical history of diabetes, hypertension, hypothyroidism, who had presented to the emergency room with tachycardia and diaphoresis. The patient's blood sugar was 56 on evaluation in the ER, but his heart rate was incidentally noted to be in the 120s. The patient had troponins done, which were positive and peaked at 0.237 on the . The patient was started on D10 infusion, IV diltiazem, given IV adenosine and aspirin and Lovenox and was admitted for further workup. HOSPITAL COURSE: NSTEMI: The patient had a cardiology consultation done by Dr. Goyal on the . His EKG did show ST depressions in leads 1/2/V4, V5, and V6 in the emergency room. The patient had undergone a cardiac catheterization on the , which showed 99% stenosis in the LAD. The patient was referred to Cardiothoracic Surgery for CABG. The patient underwent a CABG on the 10/23/19. The patient was monitored in the ICU for a few days and was transferred to the floor on 10/25. The patient was briefly placed on insulin drip and Levophed while he was in the ICU. The patient did well postoperatively. On the day of discharge, the patient ambulated around the hallway 6 or 7 times with no chest discomfort or shortness of breath. The patient was referred for outpatient cardiac rehab. The patient was advised to see Dr. Parrish in followup as an outpatient in 2 weeks and to follow up with Dr. Munoz in 4 weeks. He was discharged with aspirin 325 mg, atorvastatin 40 mg p.o. at bedtime, lisinopril 10 mg p.o. daily, metoprolol 50 mg p.o. daily. Hypertensive emergency: The patient presented to the emergency room initially with a blood pressure of 229 systolic. The patient did have an NSTEMI and underwent CABG with PERAZA to the LAD and reverse saphenous vein to 3 mm DM 1. The patient was discharged on metoprolol and lisinopril for his hypertension. Blood pressure on the day of discharge was stable at 145/69. Hyperlipidemia: The patient was discharged on a statin. Type 2 diabetes: The patient was discharged on metformin. He was also discharged on Tresiba 40 units subcu b.i.d. per the patient's request since that is what his insurance covers. He is also discharged on a moderate sliding scale with patient to administer 10 units of blood sugars greater than 350. The patient was given a prescription for new needles and given a prescription for eight pens. The patient's hemoglobin A1c was 9.3. The patient is to follow up with PCP in a week for further assessment of his diabetes. Leukocytosis: White blood cell count was 13.5 on the 8th. This improved from a white count of 20 on the 6th. This is most likely stress related from his surgery. The patient should have a repeat CBC as an outpatient with his PCP. Anemia: The patient had a hemoglobin of 11.4 on the 8th. This is most likely postoperative from his surgery. The patient should have a CBC repeated as an outpatient. DISCHARGE PHYSICAL EXAMINATION: VITAL SIGNS: Temperature 98.5, heart rate 81, respiratory rate 18, O2 saturation 95% on room air, blood pressure 145/69. GENERAL: The patient is alert, awake, oriented x3. He is morbidly obese. CVS: Regular rate and rhythm with no murmurs, rubs, or gallops. LUNGS: Clear to auscultation bilaterally. ABDOMEN: Positive bowel sounds, soft, nontender, nondistended. EXTREMITIES: No edema. PERTINENT LABORATORY DATA: CBC on 10/25: white count 13.5, hemoglobin 11.4, hematocrit 33.6, platelet count of 198. BMP on 10/25: sodium 134, glucose 216. Lipid panel; LDL 24, triglyceride 121, cholesterol 68, HDL 20. UA on 10/15: trace ketones. U-tox on 10/15: negative INR on 10/23: 1.4. D-dimer on 10/07: was less than 0.27. PERTINENT IMAGING: Chest x-ray on 10/15: shows no evidence of acute disease. Chest x-ray on 10/25: shows no acute disease. DISCHARGE CONDITION: Stable. ACTIVITY: As tolerated. The patient will get outpatient cardiac rehab as an outpatient. DIET: Heart healthy diet and diabetic diet. DISCHARGE MEDICATIONS: New prescriptions: 1. Aspirin 325 mg p.o. daily. 2. Atorvastatin 40 mg p.o. at bedtime. 3. Tresiba 40 units subcu b.i.d. 4. Humulin R, moderate sliding scale starting 150 to 200: 2 units, 201 to 250: 4 units, 251 to 300: 6 units, 301 to 350: 8 units and greater than 350 is 10 units. 5. Lisinopril 10 mg p.o. daily. 6. Metoprolol 1000 mg p.o. b.i.d. 7. Metoprolol succinate 50 mg p.o. daily. 8. Tramadol 50 mg p.o. q.6 hours p.r.n. for few days. Continue medications: 1. Folic acid at bedtime. 2. [place]-3 supplement. 3. Levothyroxine 150 mcg p.o. daily. 4. Dicyclomine 10 mg p.o. q.i.d. 5. Tizanidine 4 mg p.o. t.i.d. DISCHARGE INSTRUCTIONS: The patient is to follow up with PCP in a week. Should follow up with Dr. Munoz from Cardiology in [address] Parrish in 2 weeks. Should have a repeat CBC to monitor leukocytosis and anemia as an outpatient and consider repeat BMP. Job ID: [id number] [facility]OSPITALHayder
[2019-10-27] MEDS ORDERED: Lisinopril 10 MG TAB PO SCH (09:00)
== END 2019-10-26 15:08 | disposition home or self-care (01) | DRG 234 ==
LOC: ERS 09:52 → ERHOLD 11:58 → 2NO 17:39 → CCU 10-23 06:39 → 2NO 10-25 14:27
PROVIDERS: ADMIT Internal Medicine Nephrology; ATTEND Internal Medicine Nephrology
PROC: 4A023N7 Measurement of Cardiac Sampling and Pressure, Left Heart, Percutaneous Approach (ICD-10-PCS; 2019-10-19)
PROC: B2151ZZ Fluoroscopy of Left Heart using Low Osmolar Contrast (ICD-10-PCS; 2019-10-19)
PROC: B2111ZZ Fluoroscopy of Multiple Coronary Arteries using Low Osmolar Contrast (ICD-10-PCS; 2019-10-19)
PROC: 3E033XZ Introduction of Vasopressor into Peripheral Vein, Percutaneous Approach (ICD-10-PCS; 2019-10-19)
PROC: 02100Z9 Bypass Coronary Artery, One Artery from Left Internal Mammary, Open Approach (ICD-10-PCS; principal; 2019-10-23)
PROC: 0210093 Bypass Coronary Artery, One Artery from Coronary Artery with Autologous Venous Tissue, Open Approach (ICD-10-PCS; 2019-10-23)
PROC: 06BQ0ZZ Excision of Left Saphenous Vein, Open Approach (ICD-10-PCS; 2019-10-23)
PROC: 5A1221Z Performance of Cardiac Output, Continuous (ICD-10-PCS; 2019-10-23)
DX: I21.4 Non-ST elevation (NSTEMI) myocardial infarction (principal); I16.1 Hypertensive emergency; E78.5 Hyperlipidemia, unspecified; I10 Essential (primary) hypertension; E03.9 Hypothyroidism, unspecified; E66.01 Morbid (severe) obesity due to excess calories; E83.42 Hypomagnesemia; E87.6 Hypokalemia; I47.9 Paroxysmal tachycardia, unspecified; E16.0 Drug-induced hypoglycemia without coma; I25.10 Atherosclerotic heart disease of native coronary artery without angina pectoris; D72.829 Elevated white blood cell count, unspecified; D64.9 Anemia, unspecified; E11.649 Type 2 diabetes mellitus with hypoglycemia without coma; Z79.890 Hormone replacement therapy; Z79.4 Long term (current) use of insulin; Z88.1 Allergy status to other antibiotic agents; Z79.82 Long term (current) use of aspirin; Z68.39 Body mass index [BMI] 39.0-39.9, adult; T38.3X5A Adverse effect of insulin and oral hypoglycemic [antidiabetic] drugs, initial encounter; Z79.899 Other long term (current) drug therapy
CPT/HCPCS: 36415; 36416; 36430; 71045; 80048; 80053; 80061; 80306; 81001; 82550; 82805; 83036; 83735; 83880; 84484; 85025; 85379; 85610; 85730; 86850; 86900; 86901; 93005; 93010; 93306; 93458; 93798; 94760; 96360; 96361; 96372; 96374; 96375; 99152; C1769; J0153; J0171; J0690; J1100; J1642; J1644; J1650; J1815; J1885; J1940; J2001; J2250; J2405; J2440; J2704; J2720; J3010; J3370; J3475; J3480; J3490; J7050; P9045; Q9967; S0017; S0020; S0028

== ENCOUNTER 2019-11-08 11:09 | Outpatient (CLI) | payer BC ==
--- NOTE | 2019-11-08 12:00 | RAD ---
2 VIEW CHEST: Date: 11/08/2019 INDICATION: Cough. COMPARISON: 10/25/2019. FINDINGS: Postop sternotomy changes. Bibasilar infiltrates and/or atelectasis. Small bilateral effusions. Stranding in the left upper lung medially is stable. IMPRESSION: Bibasilar infiltrates and/or atelectasis with a nodular opacity in the left lung base. Small bilatera l effusions. Continued follow-up recommended. POS: ANTHONY
[2019-11-08 14:09] LABS: #Basophils 0.1 thou/uL (0.0-0.2); #Eosinphils 0.5 thou/uL (0.0-0.7); #Lymphocytes 1.7 thou/uL (1.20-3.40); #Neutrophils 11.3 thou/uL (1.40-6.50); %Basophils 0.7 % (0.0-1.0); %Eosinophils 3.4 % (0.0-10.0); %Lymphocytes 11.6 % (21.0-51.0); %Monocytes 7.1 % (0.0-10.0); %Neutrophils 77.2 % (42.0-75.0); Hemoglobin 13.6 g/dL (14.0-18.0); Mean Corpuscular HGB CONC 33.2 g/dL (32.0-36.0); Mean Corpuscular Hemoglobin 32.3 pg (27.0-31.0); Mean Corpuscular Volume 97.3 fL (78.0-98.0); Mean Platelet Volume 7.2 fL (7.4-10.4); Platelet Count 622 thou/uL (130-400); RBC Distribution Width 11.8 % (11.5-14.5); Red Blood Cell (RBC) Count 4.22 mill/uL (4.70-6.10); White Blood Cell (WBC) Count 14.6 thou/uL (4.8-10.8)
[2019-11-08 14:42] LABS: ALT (SGPT) 11 U/L (8-55); AST (SGOT) 20 U/L (5-34); Albumin 4.1 g/dL (3.5-5.0); Alkaline Phosphatase 87 U/L (40-110); Anion Gap 16 mmol/L (10-20); BUN (Urea Nitrogen) 14 mg/dL (8.4-25.7); Bilirubin, Total 0.7 mg/dL (0.2-1.2); Calc. Creatinine Clearance 0 mL/min (70-130); Calcium 9.3 mg/dL (7.8-10.44); Carbon Dioxide 25 mmol/L (22-29); Chloride 101 mmol/L (98-107); Estimated GFR-MDRD 64; Globulin 3.5 g/dL (2.4-3.5); Glucose 173 mg/dL (70-105); Potassium 5.2 mmol/L (3.5-5.1); Protein, Total 7.6 g/dL (6.0-8.3); Sodium 137 mmol/L (136-145)
== END 2019-11-08 11:10 | disposition home or self-care (01) ==
LOC: SCSRAD 11:09
PROVIDERS: ATTEND Family Medicine
DX: E11.59 Type 2 diabetes mellitus with other circulatory complications (principal); R05 Cough; J90 Pleural effusion, not elsewhere classified
CPT/HCPCS: 36415; 71046; 80053; 85025